=== PATIENT | female | born 1995 | race Caucasian/White ===

== ENCOUNTER → 2023-02-25 14:47 | Outpatient (CLI) | payer OTHER, SELFPAY ==
--- NOTE | ~2023-02-25 | MR_ITS ---
EXAMINATION: MR abdomen wo/w con DATE: 02/25/2023 16:31 INDICATION: Abnormal CT scan with left renal lesion TECHNIQUE: Magnetic resonance imaging (MRI) of the abdomen was performed without and with 17 mL Multi les intravenous contrast. Sequences included coronal T2-weighted SS-FSE, coronal and axial FS 2D-F IESTA, axial STIR FSE, axial T2-weighted SS-FSE, axial T2-weighted FS SS-FSE, axial diffusion-weighte d SE, axial dual-echo T1-weighted FSPGR, and axial and coronal T1-weighted LAVA. Postcontrast axial T 1-weighted LAVA images were obtained in a time course. Postcontrast coronal T1-weighted LAVA images w ere obtained. COMPARISON: CT dated 02/09/2023 FINDINGS: Heart size is normal. No pericardial or pleural effusion. Liver, gallbladder, spleen, pancreas, bilat eral adrenal glands and right kidney are normal. 12 mm complex cystic lesion at the lower pole of the left kidney which demonstrates T2 hyperintensity of less than simple fluid attenuation and mild incr eased T1 signal consistent with proteinaceous/hemorrhagic fluid. 2 mm thick enhancing wall along with a single thin internal septations with discernible enhancement. Visualized portions of bowels are un remarkable. 2.0 cm nonenhancing right adnexal cyst. No pathologically enlarged abdominal or upper pel jac lymphadenopathy. Bone marrow signal is normal throughout. IMPRESSION: 1. 12 mm likely benign Bosniak 2 complex cystic lesion at the lower pole of the left kidney. Reviewed, dictated and finalized at location B.
== END ==
PROVIDERS: PCP Nurse Practitioner Family; Visit Provider Nurse Practitioner Family
DX: R93.5 Abnormal findings on diagnostic imaging of other abdominal regions, including retroperitoneum (principal)
CPT/HCPCS: 74183; A9577

== ENCOUNTER 2023-03-19 13:55 | Emergency (ER) | payer OTHER, SELFPAY ==
--- NOTE | 2023-03-19 14:05 | ED.GENADULT ---
HPI - General Adult General Chief complaint: Back Pain/Injury Stated complaint: Fatigue,Lower Back Pain Time Seen by Provider: 03/19/23 14:05 Source: patient, RN notes reviewed and old records reviewed Mode of arrival: ambulatory Limitations: no limitations History of Present Illness HPI narrative: 28 year female presents to the [facility] with complaints of low back pain, fatigue, chills, headache and generalized weakness that started sudden onset at 11:30 a.m. this morning. Symptoms x3 hours. No treatment prior to arrival. Patient is concerned that she has COVID or her kidneys are having issues. States that she is declining a urine screening at this time. Patient denies any injury. States that she was just driving when she developed lower lumbar bilateral pain, body aches and sudden onset fatigue. Denies abdominal pain, chest pain, shortness of breath. Discussed with patient that we do not do blood work, cannot check for her kidneys. COVID test done. Patient declined further evaluation declined to ER Treatments prior to arrival: none Related Data Home Medications Medication Instructions Recorded Confirmed clindamycin 1 %-benzoyl peroxide 5 1 applic topical DAILY 02/17/23 03/19/23 % topical gel levothyroxine 50 mcg tablet 50 mcg PO DAILY 02/17/23 03/19/23 tretinoin 0.025 % topical cream 1 applic topical DAILY 02/17/23 03/19/23 Allergies Allergy/AdvReac Type Severity Reaction Status Date / Time No Known Allergies Allergy Verified 03/19/23 14:10 Review of Systems Review of Systems: All systems reviewed & are unremarkable except as noted in HPI and below Constitutional: Constitutional: Reports as per HPI, Reports body ache(s) and Reports fatigue Eyes: Eyes: Reports no additional eye complaints ENT: Reports system reviewed and no additional complaints, except as documented Cardiovascular: Cardiovascular: Reports no additional cardiovascular complaints, Denies chest pain and Denies dyspnea Respiratory: Respiratory: Reports no additional respiratory complaints, Denies chest congestion, Denies cough and Denies dyspnea Gastrointestinal: Gastrointestinal: Reports no additional gastrointestinal complaints, Denies abdominal pain, Denies nausea and Denies vomiting Musculoskeletal: Musculoskeletal: Reports as per HPI and Reports back pain (Lumbar) Integumentary/Breasts: Skin/Breast: Reports system reviewed and no additional complaints, except as docu Neurologic: Reports system reviewed and no additional complaints, except as documented Psychiatric: Psychiatric: Reports no additional psychiatric complaints Allergic/Immunologic: Allergic/Immunologic: Reports no additional allergic/immunologic complaints [facility] Past Medical History Medical History Hypothyroidism Family History Family History Grandparent Diabetes mellitus Heart disease Social History Social History Smoking status: Never smoker Alcohol intake: current Substance use: never Lack of Transportation: No Lack of Food: Never True Current Housing: I Have Housing Concerned About Future Housing: No Difficulty Paying Gas/Electric Bills: No Difficulty Paying for Meds: No Currently Unemployed: No Education: Associate Degree Difficulty w/ Childcare or Family Care: No Living arrangements: with family Occupation/Education: occupation Gender identity (if verbalized by the patient): Female Sexual Orientation (if Verbalized by the Patient): Straight or Heterosexual Comments At the time of my signature, I reviewed and agree with the nursing past medical, surgical, social, and family history. There is no relevant family history pertinent to the patient complaint. Exam Const: General: cooperative, healthy appearing, no acute distress, well developed, alert, uncomfor
[2023-03-19 14:06] VITALS: BP 133/72; PULSE 114; RESP 18; TEMP 38.3; O2SAT 100
--- NOTE | 2023-03-19 14:18 | PC.NURSE ---
PT DECLINES UA TESTING I DON'T HAVE A UTI, IT'S NOT FOAMY OR HAVE BLOOD IN IT.
== END 2023-03-19 14:45 | disposition home or self-care (01) ==
PROVIDERS: Emergency Provider Nurse Practitioner; PCP Nurse Practitioner Family
DX: B34.9 Viral infection, unspecified (principal); R53.83 Other fatigue; Z20.822 Contact with and (suspected) exposure to COVID-19; E03.9 Hypothyroidism, unspecified
CPT/HCPCS: 87426; 99213; C9803; G0463

== ENCOUNTER 2023-05-01 08:45 | Outpatient (CLI) | payer OTHER, SELFPAY ==
--- NOTE | 2023-05-20 14:12 | WPDHOMESLEEP ---
Sleep Study - Home Unattended Date of Study: 05/01/23 Ordering Provider: Julisa Mcelroy, COLLISION ESTIMATOR Interpreting Provider: Keturah Jack, DO Home Sleep Study Type: Watch PAT Height: 1.57 m Weight: 83.915 kg Body Mass Index: 33.8 Neck Circumference (inches): 14 [place]: 4 Reason for Sleep Study Unrefreshing sleep Sleep History The patient is a 28-year-old female with hypothyroidism that had a sleep study ordered by her primary care for evaluation of sleep apnea. The patient occasionally awakens from sleep she breath. He denies awakening at night with heartburn, belching or cough. She constantly snores loudly enough that others complain. She occasionally has trouble sleeping when she has a cold. She frequently wakes up gasping for air throughout the night. She rarely has breathing problems at night observed by herself or others. She occasionally sweats excessively at night. She constantly has heart palpitations or irregular heartbeats during the night. She rarely falls asleep during the day but never while driving. She denies cataplexy. She constantly has trouble at school or work due to sleepiness. She occasionally feels unable to move while waking up or falling asleep. She occasionally experiences vivid dreamlike scenes upon awakening or falling asleep. She denies feeling afraid of going to sleep. She rarely has nightmares. She frequently remembers her dreams. She frequently has thoughts racing through her mind. She rarely feels sad or depressed. She frequently has anxiety. She occasionally has muscular tension. She frequently notices parts of her body jerk. She denies kicking during the night. She denies having crawling and aching feelings in her legs. She rarely has leg pain during the night. She rarely grinds her teeth during sleep and rarely awakens with morning jaw pain. She occasionally wakes up feeling stiff in the morning. She denies waking up with sore or achy muscles. She occasionally wakes up with pain in the neck, spine or other joints. She goes to bed between 8:30-11 p.m. on weekdays and between 10:00 p.m. to 1:00 a.m. on the weekends. It takes her 10-30 minutes to fall asleep. She wakes up frequently throughout the night for unknown reasons and can take up to 30 minutes for her to fall back asleep. She wakes up between 5-10 a.m. on weekdays and between 8-10 a.m. on the weekends. She typically gets 5-10 hours of sleep per night. She will stay in bed for up to 5 minutes after waking up in the morning. She currently lives with her . She denies consuming any caffeinated beverages within 2 hours of bedtime. She denies engaging in physical exercise before bedtime. She will read and watch television before falling asleep. She will take naps in the afternoon or the evening but they are not refreshing. She consumes 2-4 caffeinated beverages per day. She denies tobacco, alcohol and recreational drug use. [facility] Past Medical History Medical History Hypothyroidism Family History Family History Grandparent Diabetes mellitus Heart disease Social History Social History Smoking status: Never smoker Alcohol intake: current Substance use: never Lack of Transportation: No Lack of Food: Never True Current Housing: I Have Housing Concerned About Future Housing: No Difficulty Paying Gas/Electric Bills: No Difficulty Paying for Meds: No Currently Unemployed: No Education: Associate Degree Difficulty w/ Childcare or Family Care: No Living arrangements: with family Occupation/Education: occupation Gender identity (if verbalized by the patient): Female Sexual Orientation (if Verbalized by the Patient): Straight or Heterosexual Medications Home Medications Medication Instructions Recorded
[2023-05-20 14:26] VITALS: BMI 33.8
== END 2023-05-04 10:43 | disposition home or self-care (01) ==
LOC: ANHCSM 08:50
PROVIDERS: PCP Nurse Practitioner Family; Visit Provider Nurse Practitioner Family
DX: G47.9 Sleep disorder, unspecified (principal)
CPT/HCPCS: 95800

== ENCOUNTER → 2023-08-31 14:32 | Outpatient (CLI) | payer OTHER, SELFPAY ==
--- NOTE | ~2023-08-31 | MR_ITS ---
EXAMINATION: MR abdomen wo/w con DATE: 08/31/2023 15:15 INDICATION: Renal mass TECHNIQUE: Magnetic resonance imaging (MRI) of the abdomen was performed without and with 17 mL Multi les intravenous contrast. Sequences included coronal T2-weighted SS-FSE, coronal and axial FS 2D-F IESTA, axial STIR FSE, axial T2-weighted SS-FSE, axial T2-weighted FS SS-FSE, axial diffusion-weighte d SE, axial dual-echo T1-weighted FSPGR, and axial and coronal T1-weighted LAVA. Postcontrast axial T 1-weighted LAVA images were obtained in a time course. Postcontrast coronal T1-weighted LAVA images w ere obtained. COMPARISON: 03/07/2023 FINDINGS: Heart size is normal. No pericardial effusion. Trace bilateral pleural effusions. Liver, gallbladder, spleen, pancreas, bilateral adrenal glands and right kidney are normal. No interval change in a 1.2 cm T2 hyperintense complex cystic lesion in the mid left kidney with posterior predominant T1 hyperin tense likely blood or proteinaceous fluid. There is suggestion of a subtle hairline internal septatio n. Visualized portion of the lungs are clear. Visualized portion of the bladder, uterus are normal. A few tiny T2 hyperintense cysts/follicles at the bilateral ovaries with 1.1 cm dominant follicle at t he left ovary. Small amount of likely physiologic free fluid in the pelvis. No pathologically enlarge d abdominal or pelvic lymphadenopathy. Bones are unremarkable with normal marrow signal throughout. IMPRESSION: 1. No interval change in a 1.2 cm Bosniak 2 cystic left renal lesion. Reviewed, dictated and finalized at location A. EM SUPPORT ANALYST
== END ==
PROVIDERS: PCP Urology; Visit Provider Urology
DX: N28.1 Cyst of kidney, acquired (principal)
CPT/HCPCS: 74183; A9577

== ENCOUNTER 2024-01-13 12:50 | Outpatient (CLI) | payer OTHER, SELFPAY ==
--- NOTE | ~2024-01-13 | US_ITS ---
EXAMINATION: US thyroid DATE: 01/13/2024 13:04 INDICATION: Hypothyroidism. TECHNIQUE: Multiple ultrasound images of the thyroid were obtained. COMPARISON: None. FINDINGS: The right thyroid lobe measures 5.1 x 1.9 x 1.7 cm. The left thyroid lobe measures 4.8 x 1.4 x 1.5 c m. The thyroid is diffusely heterogeneous and hypoechoic. No discrete nodule. Vascularity is normal. IMPRESSION: 1. Heterogeneous thyroid, likely chronic lymphocytic (Jorge's) thyroiditis. Reviewed, dictated and finalized at location A.
== END 2024-01-13 12:51 ==
LOC: MICIMG 12:50
PROVIDERS: PCP Internal Medicine Endocrinology, Diabetes & Metabolism; Visit Provider Internal Medicine Endocrinology, Diabetes & Metabolism
DX: E03.9 Hypothyroidism, unspecified (principal)
CPT/HCPCS: 76536

== ENCOUNTER 2024-09-21 12:52 | Outpatient (CLI) | payer OTHER, SELFPAY ==
--- NOTE | ~2024-09-21 | US_ITS ---
US retroperitoneal comp Ordering provider: Alvaro Roberto MD History: . acquired complex renal cyst . Comparison: None. Technique: Ultrasound bilateral kidneys. Findings: RIGHT KIDNEY: Measures 10.8x 4x 5.2 cm in length which is normal in size. No renal cysts. No renal ma ss or visualized echogenic stones. Otherwise, normal echotexture and contour. No hydronephrosis. Norm al renal cortical thickness. LEFT KIDNEY: Measures 10.8x 3.3x 4.4 cm in length which is normal in size. Complex echogenicity area is seen in the superior pole measuring 2.8 x 2.8 x 2.6 cm. No visualized echogenic stones. Otherwise, normal echotexture and contour. No hydronephrosis. Normal renal cortical thickness. BLADDER: Normal. Ureteral jets were not seen bilaterally. IMPRESSION: Mixed echogenicity area in the left kidney superior pole which is most likely a complex cyst. Follow- up advised. If Clinically warranted CT is advised. Reviewed, dictated and finalized at location A. AGE MAKER IMPRESSION: Mixed echogenicity area in the left kidney superior pole which is most likely a complex cyst. Follow-up advised. If Clinically warranted CT is advised.
== END 2024-09-21 12:53 | disposition home or self-care (01) ==
LOC: MICIMG 12:54
PROVIDERS: PCP Urology; Visit Provider Urology
DX: N28.1 Cyst of kidney, acquired (principal); R93.422 Abnormal radiologic findings on diagnostic imaging of left kidney
CPT/HCPCS: 76770

== ENCOUNTER 2025-02-17 15:33 | Outpatient (CLI) | payer OTHER, SELFPAY ==
--- OUTSIDE RECORDS SUMMARY | 2025-02-17 15:36 | XMS_ITS ---
Author Organization [facility] [place] ([address]) Address [address] [place] [address] Care Team Providers Care Testing And Regulating Chief Name Role Phone Julisa Mcelroy Primary Care Provider UnavailRosa Benitez Unavailable [phone] ZZ[facility]Migration, Provider Unavailable [facility] REASON FOR VISIT Multum To Medispan Conversion Encounter Medications Medication SIG (Take, Route, Frequency, Duration) Notes Start Date End Date Status Levothyroxine Sodium 25 MCG 1 tab(s) ora lly once a day; Duration: 30 day(s) Active Encounters Encounter Location Date Provider Diagnosis [address] [address] 01/02/2024 Provider ZZ-Migration Plan Of Treatment No Information Progress Notes * Naya MARTINEZ MDOB: [birth year] (29 yo F)Acc No.[id number]:01/02/2024 Patient: Donal Naya STEPHENS Provider: Petra Grimes :1995 A ge:28 Y S ex:Female Date:01/02/2024 Address:[address] [id number] Pcp:Julisa Mcelroy Subjective: * Chief Complaints: * 1 . Multum To Medispan Conversion Encounter. * Medical History: * Medications: T aking Levothyroxine Sodium 25 MCG Tablet 1 tab(s) orally once a day Objective: * Vitals: Assessment: Plan: * Treatment: * Billing Information: * Visit Code: * Procedure Codes: * Electronic signature of Prov bhumir ZZ-Migration on 02/17/2025 at 03:36 PM CDT Sign off status: Pending * Provider: Petra youssef Migration Date: 01/02/2024 Generated for Carolyn domínguez/Summer/Norma on: 02/17/2025 03:36 PM CDT
--- OUTSIDE RECORDS SUMMARY | 2025-02-17 15:36 | XMS_ITS | Patient Health Record ---
Author Organization [facility] [place] ([address]) Address [address] [facility] [address] [place] [address] Care Team Providers Care Agricultural Systems Specialist Name Role Phone BertoestevanJulisa Primary Care Provider Rosa Rios Unavailable [phone] Allergies No Known Allergies Reason For Referral No Information Medications Medication SIG (Take, Route, Frequency, Duration) Notes Start Date End Date Status LEVOTHYROXINE 25 mcg (0.025 mg) 1 tab(s) orally once a day; Duration: 30 day(s) Active Levothyroxine Sodium 25 MCG 1 tab(s) ora lly once a day; Duration: 30 day(s) Active Immunizations Vaccine Route Administration Date Status Comme nts DTaP < 7 y/o Unknown 11/14/1998 Administered Portal Inf ormation Hepatitis B (11-19) Unknown 1994 Administered Por perfecto Information Hepatitis B (20 and more) Unknown 12/22/2015 Administer ed Portal Information NOC PedvaxHIB Unknown 06/04/1995 Administered Portal In formation Hepatitis A Unknown 04/08/2007 Administered Portal Info rmation NOC Tdap Unknown 03/28/2015 Administered Portal Infor mation Social History Tobacco Use: Social History Observation Description Date Details (start date - stop date) Never Smoker NA - NA Smoking Smart Form: Question Answer Notes Are you a: never smoker Problems Problem Type SNOMED Code ICD Code Onset Dates Problem Status W/U Status Risk Notes Problem Allergic rhinitis caused by pollen (disorder) (00973450) Allergic rhinitis due to pollen (J30.1) Active confirmed Plan Of Treatment No Information Insurance Providers Payer Name Payer Address Payer Phone Subscriber Number Group Number Insured Name Patient Relationship to Insured Coverage Start Date Coverage End Date [facility] [address] [place] [address] [id number] Naya [place] Self - patient is the insured Medical (General) History Medical History History ICD Code Hypothyroidism Chronic rhinitis J31.0 Surgical History Surgery Date(Month/Year)
--- OUTSIDE RECORDS SUMMARY | 2025-02-17 15:36 | XMS_ITS | Clinical Summary ---
Author Organization [facility] Address [facility] [place] [address] Care Team Providers Care Neon Tube Pumper Name Role Phone Julisa Mcelroy ISAÍAS Primary Care Provider [phone] Allergies No known active allergies Medications methylPREDNISol one, IVETTE, 4 MG tablet 6 TABLETS ON DAY ONE, 5 TABLETS DAY TWO, 4 TABLETS DAY THREE, 3 TABLETS DAY FOUR, 2 TABLETS DAY FIVE, AND 1 TABLET DAY SIX 1 each 06/18/2018 Active Family History Medical History Relation Comments Diabetes Maternal Grandmother Relation Status Comments Father Alive Maternal Grandmother Mother Alive Social History Tobacco Use Types Packs/Day Years Used Date Smoking Tobacco: Never Smokeless Tobacco: Never Tobacco Cessation:Counseling Given: Not Answered Alcohol Use Standard Drinks/Week Comments Yes 0 (1 standard drink = 0.6 oz pur e alcohol) occ. AUDIT-C Answer Date Recorded Frequency of Alcohol Consumption Never 06/18/2018 Average Number of Drinks Not on file 018 Frequency of Binge Drinking Not on file 05/22 Comments No Sex and Gender Information Value Date Recorded Sex Assigned at Not on file Legal Sex Female 4:43 PM CDT Gender Identity Not on file Sexual Orientation Not on file Last Filed Vital Signs Vital Sign Reading Time Taken Comments Blood Pressure 140/88 02/09/2023 1:42 PM CDT Pulse 80 02/09/2023 1:42 PM CDT Temperature 36.9 C (98.4 F) 02/09/2023 10:35 AM CDT Respiratory Rate 16 02/09/2023 1:42 PM CDT Oxygen Saturation 100% 02/09/2023 1:42 PM CDT Inhaled Oxygen Concentration - - Weight 83.6 kg (184 lb 4.9 oz) 02/09/2023 10:35 AM CDT Height 157.5 cm (5' 2) 02/09/2023 10:35 AM CDT Body Mass Index 33.71 02/09/2023 10:35 AM CDT Plan of Treatment Health Maintenance Due Date Last Done Comments Cervical Cancer Screening Pap Smear (Age 30 to 64) Every 3 Years 1994 Annual Physical 1997 Hepatitis C 02/28/2012 DTaP, Tdap and Td Vaccines (7 - Td or Tdap) 01/22/2021 01/22/2011, 06/19/2005, 11/14/1998, Additional history exists Cervical Cancer Screening Pap with HPV Testing (Age 30 to 64) Every 5 Years 02/28/2024 Cervical Cancer Screening with HPV 02/28/2024 COVID-19 Vaccine () 03/20/2024 10/27/2020 Hepatitis B Vaccines Completed 1995, 1995, 1995 HPV Vaccines Completed 11/26/2007, 05/21, 04/08/2007 Meningococcal B Vaccine Aged Out No l onger eligible based on patient's age to complete this topic Meningococcal Vaccine Aged Out No gustavo junie eligible based on patient's age to complete this topic Pneumococcal Vaccine: Pediatrics (0 to 5 Years) and At-Risk Patients (6 to 49 Years) Aged Out No longer eligible based on patient's age to complete this topic RSV Immunizations Under 20 Months Aged Out No longer eligible based on patient's age to complete this topic Insurance Care Teams Neon Tube Pumper Relationship Specialty Start Date End Date Julisa Mcelroy NP [address] [id number] PCP - General 02/09/23
--- OUTSIDE RECORDS SUMMARY | 2025-02-17 15:37 | XMS_ITS | Continuity of Care Document ---
Author Name [facility] Organization [facility] Care Team Providers Care Digital Solution Architect Name Role Phone [facility] Unavailable Unavailable Problems Combined list of problems from Department of Defense and Veterans Affairs facilities. It does not include entries that were removed or entered in error. 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 ASSESSMENT, POST-DEPLOYMENT, DOCUMENTED ON [id number] Inactive [address] [facility] Encounter for screening for COVID-[address] [facility] Encounter for surveillance of contraceptive pills Active [address] [facility] Allergic rhinitis due to tree pollen Active [facility] Hypothyroidism Active Condition [facility] Anxiety (SCT 88162165) Active Condition [facility] Hypothyroidism (SCT 50047926) Active Condition [facility] Neck Pain (SCT 21370087) Active Condition [facility] Allergic contact dermatitis due to other agents Active Condition 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, bilateral Active Diagnosis [facility] Diagnosis: ICD-10-CM L30.9 Dermatitis, unspecified Active Diagnosis [facility] Diagnosis: ICD-10-CM E66.9 Obesity, unspecified Active Diagnosis [facility] Diagnosis: ICD-10-CM M54.2 Cervicalgia Active Diagnosis [facility] Diagnosis: ICD-10-CM N39.9 Disorder of urinary system, unspecified Active Diagnosis [facility] Diagnosis: ICD-10-CM Z71.89 Other specified counseling Active Diagnosis [facility] Diagnosis: ICD-10-CM E03.9 Hypothyroidism, unspecified Active Diagnosis [facility] Medications Combined list of outpatient medications from Department of Defense and Veterans Affairs facilities.Medications provided include 1) outpatient medications from the last 15 months, and 2) patient-reported medications. Medication Details Route Status Patient Instructions Prescription Expires Prescription Number Last Dispense Date Ordering Provider Order Date Order Qty Source buPROPion 300 mg/24 hours (XL) oral tablet, extended release 90 EA, 0 Refill(s ), TAKE 1 TABLET BY MOUTH EVERY DAY IN THE MORNING FOR 90 DAYS, 0 total refill(s ), Soft Stop Ordered 2023 8320R-9 32D [facility] 4AF BUPROPION XL (bupropion HCl), 300 MG, TAB ER 24H, ORAL, Epic!, 500 ea. BOTTLE Active [id number] 4 2023 90 Pharmac y Data Transac tion Service Facilit y celecoxib 200 mg oral capsule TAKE TWO CAPSULES BY MOUTH WITH ONSET OF CRAMPS, THEN TAKE ONE CAPSULE BY MOUTH TWICE A DAY FOR DURATION OF MENSES, # 90 EA, 3 total refill(s ), Acute Complet ed 03/19/2023 2 2022 90.0 [facility] Pharmac y clindamycin 1% topical gel 1 appl(s), Topical, BID, # 30 g, 0 total refill(s ), Maintena nce Topica l (on the skin) Ordered 2023 30.0 8320R-9 32D [facility] 4AF dapsone 7.5% gel pump [60g] See Instruct ions, # 60 g, 5 total refill(s ), Soft Stop Ordered 5 2024 60.0 Ambulat or[facility] Pharmac y levothyroxi ne (Synthroid) 88 mcg tablet See Instruct ions, # 90 EA, 2 total refill(s ), Soft Stop Ordered 5 2024 90.0 Ambulat ory Pharmac y levothyroxi ne 25 mcg oral tablet 1 tab(s), Oral, Daily, for thyroid, # 90 tab(s), 0 total refill(s ), Maintena nce Oral (given by mouth) Complet ed 03/31/20242023 90.0 Ambul[facility] Pharmac y levothyroxi ne 75 mcg oral tablet 0 Refill(s ), 0 total refill(s ), Soft Stop Complet ed 03/31/20242023 8320R-9 32D [facility] 4AF levothyroxi ne 88 mcg oral tablet 90 EA, 0 Refill(s ), TAKE 1 TABLET BY MOUTH EVERY DAY, 0 total refill(s ), Soft Stop Ordered 2023 8320R-9 32D [facility] 4AF LEVOTHYROXI NE SODIUM (LEVOTHYROX INE SODIUM), 75MCG, TABLET, ORAL, MYLAN, 1000 ea. BOTTLE Active [id number] 4 2023 90 Pharmac y Data Transac tion Service Facilit y LEVOTHYROXI NE SODIUM (LEVOTHYROX INE SODIUM), 88MCG, TABLET, ORAL, MYLAN, 1000 ea. BOTTLE Active [id number] 4 2023 30 Pharmac y Data Transac tion Service Facilit y medroxyPROG ESTERone 10 mg oral tablet TAKE ONE TABLET BY MOUTH EVERY DAY FOR 13 DAYS IF NO MENSES FOR 3 MONTH, # 13 EA, 3 total refill(s ), Acute Complet ed 03/19/2023 2 2022 13.0 Ambul[facility] Pharmac y METHYLPREDN ISOLONE 4MG TAB DOSEPAK,21 TAKE TABLETS BY MOUTH DIRECTED ORAL ACTIVE ROSA MARIA PELAEZ 2023 [facility] tretinoin 0.01% topical gel 1 appl(s), Topical, Daily, # 20 g, 0 total refill(s ), Maintena nce Topica l (on the skin) Ordered 2023 20.0 8320R-9 32D [facility] SQ 4AF TRIAMCINOLO NE ACETONIDE 0.1% CREAM,TOP APPLY LIGHTLY TO AFFECTED AREA(S) THREE TIMES A DAY NEEDED TOPICA L ACTIVE ROSA MARIA PELAEZ 2023 [facility] Vitamin D3 50 mcg (2000 intl units) oral capsule 1 cap(s), Oral, Daily, 0 total refill(s ), Maintena nce Oral (given by mouth) Ordered 2023 8320R-9 32D [facility] SQ 4AF Allergies, Adverse Reactions, Alerts Combined list of allergies from Department of Defense and Veterans Affairs facilities. It does not include entries that were removed or entered in error. Substance Category Reaction Severity Reaction type Status Date Reported Comments Source No Known Allergies Drug allergy (disorder) active 8 [place] [place] [address] Tree Pollen Allergy to substance Rhinitis Mild Active Unknown Organization Immunizations Combined list of available immunizations from the Department of Defense and Veterans Affairs facilities. Immunization Series Date Given Administered By Site Reaction Lot Number CVX Code Drug Heel Coverer Status Comments Source INFLUENZA, SPLIT VIRUS, TRIVALENT, PF 1 2023 140 complet ed HISTORICA L INFORMATI ON - FROM OTHER [facility] INFLUENZA, INJECTABLE, QUADRIVALENT, PRESERVATIVE FREE 1 2022 150 complet ed HISTORICA L INFORMATI ON - FROM OTHER [facility] Influenza, injectable, quadrivalent, preservative free 0 2021 [id number] SmithKline (SKB) complet ed Influenza , injectabl e, quadrival ent, preservat charles free DoD rubella virus vaccine 0 2021 06 () Not Given rubella virus vaccine [facility] varicella virus vaccine 0 2021 21 () Not Given varicella virus vaccine [facility] hepatitis A vaccine, adult dosage 0 2021 52 () Not Given hepatitis A vaccine, adult dosage [facility] SARS-COV-2 (COVID-19) vaccine, mRNA, spike protein, LNP, preservative free, 100 mcg or 50 mcg dose 2 2021 [id number] 207 [employer] (MOD) complet ed SARS-COV- 2 (COVID-19 ) vaccine, mRNA, spike protein, LNP, preservat charles free, 100 mcg or 50 mcg dose DoD anthrax vaccine 3 2020 [id number] 24 [facility] ([facility]) complet ed anthrax vaccine DoD yellow fever vaccine 1 2020 [id number] 37 Sanofi Pasteur (PMC) complet ed yellow fever vaccine DoD meningococcal polysaccharid e (groups A, C, Y and W-135) diphtheria toxoid conjugate vaccine (MCV4P) 2 2020 [id number] 114 Sanofi Pasteur (PMC) complet ed meningoco ccal polysacch aride (groups A, C, Y and W-135) diphtheri a toxoid conjugate vaccine (MCV4P) DoD influenza, injectable, quadrivalent, preservative free 2020 DERRICK, () Not Given influenza , injectabl e, quadrival ent, preservat charles free DoD Influenza, seasonal, injectable 1 2020 [id number] 141 Transcribed (TRS) complet ed Influenza , seasonal, injectabl e DoD Influenza, injectable, quadrivalent, preservative free 0 2020 150 Seqirus (SEQ) comple t ed Influenza , injectabl e, quadrival ent, preservat charles free DoD anthrax vaccine 2 2020 [id number] 24 [facility] ([facility]) complet ed anthrax vaccine DoD anthrax vaccine 1 2020 [id number] 24 [facility] ([facility]) complet ed anthrax vaccine DoD typhoid Vi capsular polysaccharid e vaccine 1 2020 [id number] 101 Sanofi Pasteur (PMC) complet ed typhoid Vi capsular polysacch aride vaccine DoD SARS-COV-2 (COVID-19) vaccine, vector non-replicati ng, recombinant spike protein-Ad26, preservative free, 0.5 mL 1 2020 212 Kristen (BEST) comple t ed SARS-COV- 2 (COVID-19 ) vaccine, vector non-repli cating, recombina nt spike protein-A d26, preservat charles free, 0.5 mL DoD Influenza, injectable, quadrivalent, preservative free 1 2019 [id number] 868 150 Seqirus (SEQ) complet ed Influenza , injectabl e, quadrival ent, preservat charles free DoD Influenza, injectable, quadrivalent, preservative free 0 2018 [id number] 040 150 Seqirus (SEQ) complet ed Influenza , injectabl e, quadrival ent, preservat charles free DoD Influenza, injectable, quadrivalent, preservative free 1 2017 [id number] 150 Seqirus (SEQ) comple t ed Influenza , injectabl e, quadrival ent, preservat charles free DoD hepatitis B vaccine, unspecified formulation 0 2017 45 () Not Given hepatitis B vaccine, unspecifi ed formulati on DoD measles virus vaccine 0 2017 05 () Not Given measles virus vaccine DoD rubella virus vaccine 0 2017 06 () Not Given rubella virus vaccine DoD mumps virus vaccine 0 2017 07 () Not Given mumps virus vaccine DoD influenza, injectable, quadrivalent- pf 2016 [id number] 150 Seqirus complet ed influenza , injectabl e, quadrival ent-pf 05/23/17 Given 0128C-9 2ND [facility] Influenza, injectable, quadrivalent, preservative free 1 2016 [id number] 150 Seqirus (SEQ) comple t ed Influenza , injectabl e, quadrival ent, preservat charles free DoD influenza, seasonal, injectable-pf 2015 [id number] 140 Unknown complet ed influenza , seasonal, injectabl e-pf 05/25/16 Given 0128C-9 2ND MED [facility] Influenza, seasonal, injectable, preservative free 1 2015 [id number] 140 Unknown (UNK) comple t ed Influenza , seasonal, injectabl e, preservat charles free DoD hepatitis B adult vaccine 2015 UNK 43 Unknown complet ed hepatitis B adult vaccine 12/22/15 Given 0128C-9 2ND [facility] hepatitis B vaccine, adult dosage 3 2015 UNK 43 Unknown (UNK) comple t ed hepatitis B vaccine, adult dosage DoD hepatitis B adult vaccine 2014 [id number] 43 GlaxoSmithKli ne complet ed hepatitis B adult vaccine 05/18/15 Given 0128C-9 2ND MED [facility] hepatitis B vaccine, adult dosage 2 2014 [id number] 43 pro[place] (SKB) complet ed hepatitis B vaccine, adult dosage DoD influenza, seasonal, injectable-pf 2014 [id number] 140 CSL Behring complet ed influenza , seasonal, injectabl e-pf 05/01/15 Given 0128C-9 2ND MED GRP-JO[facility]CHILD Influenza, seasonal, injectable, preservative free 1 2014 [id number] 140 CSL AutomileherapAlavita Pharm[employer], Inc[employer] Inc. (CSL) complet ed Influenza , seasonal, injectabl e, preservat charles free DoD adenovirus vaccine, live 2014 [id number] 143 Teva Pharmaceutica ls complet ed adenoviru s vaccine, live 03/28/15 Given 0128C-9 2ND [facility] tetanus, diphtheria, acellular pertu is 2014 [id number] 115 sanofi pasteur complet ed tetanus, diphtheri a, acellular pertussis 03/28/15 Given 0128C-9 2ND MED [facility] meningococcal A,C,Y,W-135 (MCV4P) 2014 [id number] 114 sanofi pasteur complet ed meningoco ccal A,C,Y,W-1 35 (MCV4P) 03/28/15 Given 0128C-9 2ND [facility] hepatitis B adult vaccine 2014 [id number] 43 GlaxoSmithKli ne complet ed hepatitis B adult vaccine 03/28/15 Given 0128C-9 2ND [facility] poliovirus vaccine, inactivated 2014 [id number] 10 sanofi pasteur complet ed polioviru s vaccine, inactivat ed 03/28/15 Given 0128C-9 2ND [facility] measles, mumps and rubella virus vaccine 1 2014 UNK 03 Unknown (UNK) Not Given measles, mumps and rubella virus vaccine DoD poliovirus vaccine, inactivated 1 2014 [id number] 10 Sanofi Pasteur ([facility]) complet ed polioviru s vaccine, inactivat ed DoD varicella virus vaccine 1 2014 UNK 21 Unknown (UNK) Not Given varicella virus vaccine DoD hepatitis B vaccine, adult dosage 1 2014 [id number] 43 SmithKline (SKB) complet ed hepatitis B vaccine, adult dosage DoD hepatitis A vaccine, adult dosage 1 2014 UNK 52 Unknown (UNK) Not Given hepatitis A vaccine, adult dosage DoD meningococcal polysaccharid e (groups A, C, Y and W-135) diphtheria toxoid conjugate vaccine (MCV4P) 1 2014 [id number] 114 Sanofi Pasteur ([facility]) complet ed meningoco ccal polysacch aride (groups A, C, Y and W-135) diphtheri a toxoid conjugate vaccine (MCV4P) DoD tetanus toxoid, reduced diphtheria toxoid, and acellular pertu is vaccine, adsorbed 1 2014 [id number] 115 Sanofi Pasteur ([facility]) complet ed tetanus toxoid, reduced diphtheri a toxoid, and acellular pertussis vaccine, adsorbed DoD Adenovirus, type 4 and type 7, live, oral 1 2014 [id number] 143 [facility] ([facility]) complet ed Adenoviru s, type 4 and type 7, live, oral DoD tetanus, diphtheria, acellular pertu is 2010 TRANSCR IBED 115 complet ed tetanus, diphtheri a, acellular pertussis 01/22/11 Given 0128C-9 2ND [facility] tetanus toxoid, reduced diphtheria toxoid, and acellular pertu is vaccine, adsorbed 1 2010 115 Transcribed (TRS) complet ed tetanus toxoid, reduced diphtheri a toxoid, and acellular pertussis vaccine, adsorbed DoD Human Papillomaviru s,quadrivalen t(HPV4) 2007 TRANSCR IBED 62 complet ed Human Papilloma virus,beth drivalent (HPV4) 11/26/07 Given 0128C-9 2ND MED GR[facility] human papilloma virus vaccine, quadrivalent 3 2007 62 Transcribed (TRS) complet ed human papilloma virus vaccine, quadrival ent DoD Human Papillomaviru s,quadrivalen t(HPV4) 11/20/ 2007 TRANSCR IBED 62 complet ed Human Papilloma virus,beth drivalent (HPV4) 06/08/07 Given 0128C-9 2ND [facility] human papilloma virus vaccine, quadrivalent 2 2006 62 Transcribed (TRS) complet ed human papilloma virus vaccine, quadrival ent DoD Human Papillomaviru s,quadrivalen t(HPV4) 2006 TRANSCR IBED 62 complet ed Human Papilloma virus,beth drivalent (HPV4) 04/08/07 Given 0128C-9 2ND [facility] Hep A, pediatric, unspecified formul 2006 TRANSCR IBED 31 complet ed Hep A, pediatric , unspecifi ed formul 04/08/07 Given 0128C-9 2ND [facility] hepatitis A vaccine, pediatric dosage, unspecified formulation 2 2006 31 Transcribed (TRS) complet ed hepatitis A vaccine, pediatric dosage, unspecifi ed formulati on DoD human papilloma virus vaccine, quadrivalent 1 2006 62 Transcribed (TRS) complet ed human papilloma virus vaccine, quadrival ent DoD Td (adult) 2004 TRANSCR IBED 138 complet ed Td (adult) 06/19/05 Given 0128C-9 2ND [facility] tetanus and diphtheria toxoids, not adsorbed, for adult use 1 2004 138 Transcribed (TRS) complet ed tetanus and diphtheri a toxoids, not adsorbed, for adult use DoD DTaP 1998 TRANSCR IBED 20 complet ed DTaP 11/14/98 Given 0128C-9 2ND [facility] poliovirus vaccine, inactivated 1998 TRANSCR IBED 10 complet ed polioviru s vaccine, inactivat ed 11/14/98 Given 0128C-9 2ND [facility] measles/mumps /rubella virus vaccine 1998 TRANSCR IBED 03 complet ed measles/m umps/rube lla virus vaccine 11/14/98 Given 0128C-9 2ND [facility] measles, mumps and rubella virus vaccine 3 1998 03 Transcribed (TRS) complet ed measles, mumps and rubella virus vaccine DoD poliovirus vaccine, inactivated 5 1998 10 Transcribed (TRS) complet ed polioviru s vaccine, inactivat ed DoD diphtheria, tetanus toxoids and acellular pertu is vaccine 5 1998 20 Transcribed (TRS) complet ed diphtheri a, tetanus toxoids and acellular pertussis vaccine DoD haemophilus b conjugate (PRP-T) vaccine 1994 TRANSCR IBED 48 complet ed haemophil us b conjugate (PRP-T) vaccine 06/04/95 Given 0128C-9 2ND [facility] DTaP 1994 TRANSCR IBED 20 complet ed DTaP 06/04/95 Given 0128C-9 2ND [facility] diphtheria, tetanus toxoids and acellular pertu is vaccine 4 1994 20 Transcribed (TRS) complet ed diphtheri a, tetanus toxoids and acellular pertussis vaccine DoD Haemophilus influenzae type b vaccine, PRP-T conjugate 4 1994 48 Transcribed (TRS) complet ed Haemophil us influenza e type b vaccine, PRP-T conjugate DoD measles/mumps /rubella virus vaccine 1994 TRANSCR IBED 03 complet ed measles/m umps/rube lla virus vaccine 03/03/95 Given 0128C-9 2ND MED GR[facility] measles, mumps and rubella virus vaccine 2 1994 03 Transcribed (TRS) complet ed measles, mumps and rubella virus vaccine DoD haemophilus b conjugate (PRP-T) vaccine 1994 TRANSCR IBED 48 complet ed haemophil us b conjugate (PRP-T) vaccine 94 Given 0128C-9 2ND [facility] DTaP 1994 TRANSCR IBED 20 complet ed DTaP 94 Given 0128C-9 2ND [facility] poliovirus vaccine, inactivated 1994 TRANSCR IBED 10 complet ed polioviru s vaccine, inactivat ed 94 Given 0128C-9 2ND [facility] hepatitis B pediatric/ado lescent 1994 TRANSCR IBED 08 complet ed hepatitis B pediatric /adolesce nt 94 Given 0128C-9 2ND [facility] hepatitis B vaccine, pediatric or pediatric/ado lescent dosage 7 1994 08 Transcribed (TRS) complet ed hepatitis B vaccine, pediatric or pediatric /adolesce nt dosage DoD poliovirus vaccine, inactivated 4 1994 10 Transcribed (TRS) complet ed polioviru s vaccine, inactivat ed DoD diphtheria, tetanus toxoids and acellular pertu is vaccine 3 1994 20 Transcribed (TRS) complet ed diphtheri a, tetanus toxoids and acellular pertussis vaccine DoD Haemophilus influenzae type b vaccine, PRP-T conjugate 3 1994 48 Transcribed (TRS) complet ed Haemophil us influenza e type b vaccine, PRP-T conjugate DoD haemophilus b conjugate (PRP-T) vaccine 1993 TRANSCR IBED 48 complet ed haemophil us b conjugate (PRP-T) vaccine 94 Given 0128C-9 2ND [facility] DTaP 1993 TRANSCR IBED 20 complet ed DTaP 94 Given 0128C-9 2ND [facility] diphtheria, tetanus toxoids and acellular pertu is vaccine 2 1993 20 Transcribed (TRS) complet ed diphtheri a, tetanus toxoids and acellular pertussis vaccine DoD Haemophilus influenzae type b vaccine, PRP-T conjugate 2 1993 48 Transcribed (TRS) complet ed Haemophil us influenza e type b vaccine, PRP-T conjugate DoD poliovirus vaccine, inactivated 1993 TRANSCR IBED 10 complet ed polioviru s vaccine, inactivat ed 94 Given 0128C-9 2ND [facility] poliovirus vaccine, inactivated 3 1993 10 Transcribed (TRS) complet ed polioviru s vaccine, inactivat ed DoD haemophilus b conjugate (PRP-T) vaccine 1993 TRANSCR IBED 48 complet ed haemophil us b conjugate (PRP-T) vaccine 94 Given 0128C-9 2ND [facility] DTaP 1993 TRANSCR IBED 20 complet ed DTaP 94 Given 0128C-9 2ND [facility] poliovirus vaccine, inactivated 1993 TRANSCR IBED 10 complet ed polioviru s vaccine, inactivat ed 94 Given 0128C-9 2ND [facility] hepatitis B pediatric/ado lescent 1993 TRANSCR IBED 08 complet ed hepatitis B pediatric /adolesce nt 94 Given 0128C-9 2ND [facility] hepatitis B vaccine, pediatric or pediatric/ado lescent dosage 6 1993 08 Transcribed (TRS) complet ed hepatitis B vaccine, pediatric or pediatric /adolesce nt dosage DoD poliovirus vaccine, inactivated 2 1993 10 Transcribed (TRS) complet ed polioviru s vaccine, inactivat ed DoD diphtheria, tetanus toxoids and acellular pertu is vaccine 1 1993 20 Transcribed (TRS) complet ed diphtheri a, tetanus toxoids and acellular pertussis vaccine DoD Haemophilus influenzae type b vaccine, PRP-T conjugate 1 1993 48 Transcribed (TRS) complet ed Haemophil us influenza e type b vaccine, PRP-T conjugate DoD hepatitis B pediatric/ado lescent 1993 TRANSCR IBED 08 complet ed hepatitis B pediatric /adolesce nt 94 Given 0128C-9 2ND [facility] hepatitis B vaccine, pediatric or pediatric/ado lescent dosage 5 1993 08 Transcribed (TRS) complet ed hepatitis B vaccine, pediatric or pediatric /adolesce nt dosage DoD Results Combined list of recent chemistry, hematology and other laboratory results from Department of Defense and Veterans Affairs, ranging from 15 months to all on record, depending upon the facility. Order Name Results Value Reference Range Date Interpretation Specimen Comments Source HEP C Ab HCV Ab (STL) HEPATITIS C VIRUS AB [PRESENCE] IN SERUM Nonreact charles 09/22 Specimen Type: SERUM No comment entered. Ordering Provider: KAREY BHARDWAJ Report Released Date/Time: Sep 23, 2023 01:30 PM Reporting Lab: [facility] [address] [place] [address] Performing Lab: [facility] [address] [place] [address] [facility] Infectiou s Disease HIV-1/O/2 Non-Reac tive 1 (06/20/23 2:47 PM) 06/20 N Interpretiv e Data: INTERPRETAT ION: This method is a screening procedure for the detection of HIV p24 Antigen and Antibodies to HIV-1, including Group O, and/or HIV-2. NON-REACTIV E: HIV-1 antigen and HIV-1 / HIV-2 antibodies were not detected. No laboratory evidence of HIV infection. A negative test result does not exclude the possibility of exposure to or infection with HIV. HIV antibodies and/or p24 antigen may be undetectabl e in some stages of the infection and in some clinical conditions. If acute HIV infection is suspected, consider submitting another specimen to a reference laboratory for HIV-1 RNA. SCREEN REACTIVE - CONFIRMATIO N TO FOLLOW: Possible presence of HIV-1antibo dies, HIV-2 antibodies and/or HIV-1 p24 antigen. Specimen will reflex to the confirmatio n testing that fulfills the Center for Disease Control and Prevention' s HIV diagnostic algorithm. Refer to [facility] Lab Guide for additional information : [email or web address] x Testing performed by [employer] [facility]. 5600A-U [facility] Miscellan eous Sendouts Repository Sample Received (06/20/23 2:47 PM) 06/20 N [facility] Chemistry TSH 2.85 uIU/mL 0.47 - 4.68 12/23 N 0113A-A F-C-[facility]n d [facility] Chemistry T4 Free 1.52 ng/dL 0.78 - 2.19 12/23 N 0113A-A F-C-[facility]n d [facility] Vital Signs Combined list of inpatient and outpatient Vital Signs from Department of Defense and Veterans Affairs, ranging from 12 months to all on record, depending upon the facility. Vital Sign Value Date Comments Source Mean Arterial Pressure, Calc 91 mm[Hg] 04/03/2018 01:25:00 [facility] S[facility] 4AF Peripheral Pulse Rate 91 bpm 04/03/2018 01:25:00 8320R932D [facility]IC[facility] SQ 4AF Respiratory Rate 14 br/min 04/03/2018 01:25:00 8320R-932D [facility] SQ 4AF Systolic Blood Pressure 118 mm[Hg] 04/03/20 18 01:25:00 8320R-932D [facility] SQ 4AF Diastolic Blood Pressure 78 mm[Hg] 018 01:25:00 8320R-932D [facility] SQ 4AF Respiratory Rate 14 br/min 04/01/2018 18:34:00 No Facility Access Peripheral Pulse Rate 92 bpm 04/01/2018 18:34:00 No Facility Access Mean Arterial Pressure, Calc 91 mm[Hg] 04/01/2018 18:34:00 No Facility Access Systolic Blood Pressure 118 mm[Hg] 04/01/20 18 18:34:00 No Facility Access Diastolic Blood Pressure 78 mm[Hg] 018 18:34:00 No Facility Access Encounters Combined list of: 1) Encounters from [facility] of [facility] facilities going backup to the last 18 months, not all [facility] inpatient encounters are included; 2) Encounters from the Department of [employer] facilities going backup to 280 months. Location Location Details Encounter Type Encounter Number Reason For Visit Attending Provider ADM Date DC Date Status Disposition Source [facility] [id number] Notes Entered by: RONAL MELISSA 21 Mar 2015 1340 ------- ------- ------- ------- -- BLOOD MARY GARCIA 03/21 Released w/o Limitations [facility] STEPHEN Elkins(Ramo g Conservat ion) OUTPATIENT [id number] Notes Entered by: Ranjeet NORTON 23 Mar 2015 1103 ------- ------- ------- ------- -- [facility] ABET NEGIN NORTON 03/23 Released w/o Limitations STEPHEN Correa(Hear ing Conserv ation) STEPHEN Elkins(OST Optometry ) OUTPATIENT [id number] Notes Entered by: ME EVELYN MA 23 Mar 2015 1140 ------- ------- ------- ------- -- OST IET ZELALEM BECKFORD 03/23 Released w/o Limitations [facility] [employer] [place] [facility] [place] OUTPATIENT [id number] Notes Entered by: EVANGELINA MONTOYA 28 Mar 2015 0800 ------- ------- ------- ------- -- SAÚL ZAVALA 03/28 Released w/o Limitations [facility] [employer] [place] [facility] [facility] [employer] [place]AMH S02B Leak[place] OUTPATIENT [id number] Notes Entered by: IGOR CASE 11 May 2015 0655 ------- ------- ------- ------- -- (N P)-ADT C SORE THROAT, COUGH,S INUSES MATT CODY 05/11 Released w/o Limitations [facility] [employer] S02B [place] [facility] [employer] [place] S02B Le[place] OUTPATIENT [id number] Notes Entered by: LEWIS JARVIS 15 May 2015 1038 ------- ------- ------- ------- -- C 08/07 [facility] ALLERGI ES MATT CODY 05/15 Released w/o Limitations [facility] [employer] [place] S02B Le[place] [facility] [employer] [place] OUTPATIENT [id number] Notes Entered by: JOHN DEL RIO 18 May 2015 1256 ------- ------- ------- ------- -- Cont/SAÚL Cedeno 05/18 Released w/o Limitations [facility] [employer] [place] [facility]) [place] [place] [address](AMH S01B Juan J) OUTPATIENT [id number] Notes Entered by: Jennifer KELLOGG 05 Jun 2015 0641 ------- ------- ------- ------- -- ftscall -overfl ow MICHELLEALEKSANDAR 06/05 Released w/o Limitations [facility] [place] [address](A MH S01B Juan J ) [place] [address](AMH S01B Juan J) OUTPATIENT [id number] ftscall MICHELLEALEKSANDAR 06/26 Released w/o Limitations [facility] [place] [address](A MH S01B Juan J ) [facility] [place] [address](Opt [place]metry [facility] [id number] Notes Entered by: MARIA A CALVO 20 Aug 2015 06 ------- ------- ------- ------- -- REORDER RAMEZ CARRINGTON 08/20 Released w/o Limitations [facility] [place] [address](O ptometr y C) [place] [place] [address](AMH S01B Juan J) OUTPATIENT [id number] SHERRY PREETHI SALAS Davey 08/20 Released w/o Limitations [facility] [place] [address](A MH S01B Juan J ) [address] [place] [address] Group Rashawn [facility]Aud iology Procedure s) OUTPATIENT [id number] Notes Entered by: Hamlet CLEMONS 15 Dec 2017 0851 ------- ------- ------- ------- -- IF MARISSA ROBERSON 12/15 Released w/o Limitations [facility] Rashawn LARA ([facility]A udiolog y Procedu res) [address] [place] [address] Rashawn [facility]Bas e Operation al Medicine Clin) OUTPATIENT [id number] if YAKOV MCPHERSON 12/15 Released w/o Limitations [address] [place] [address] Group Rashawn LARA ([facility])(B ase Operati onal Medicin e Clin) [address] [place] [address])(Opt ometry) OUTPATIENT [id number] Notes Entered by: Davey BOX 15 Dec 2017 1115 ------- ------- ------- ------- -- [facility] w/i PRABHJOT NAIR 12/15 Released w/o Limitations [address] [place] [address])(O ptometr y) [address] [place] [address])([facility] Flight Medicine ) TELE CONSULT [id number] Notes Entered by: DEVIN VUONG RET 19 Apr 2018 1442 ------- ------- ------- ------- -- Appt/No n Enrolle e/ LEATHA Solis 04/19 Referred for Appointment [address] [place] [address])([facility] Flight Medicin e Tm) [address] [place] [address])([facility] Flight Medicine ) OUTPATIENT [id number] Headace s pt will come in @0820 YAKOV MCPHERSON 04/21 Released w/o Limitations [address] [place] [address])(S Cover [employer]creen Flight Medicin e Tm) [address] [place] [address])([facility]) OUTPATIENT [id number] Notes Entered by: GALA WHATLEY 04 Jun 2018 1435 ------- ------- ------- ------- -- Weight Loss GALA WHATLEY 06/04 Released w/o Limitations [address] [place] [address])(N utritio nal Medicin e) [address] [place] [address])([facility]) OUTPATIENT [id number] Notes Entered by: GALA WHATLEY 14 Jun 2018 0857 ------- ------- ------- ------- -- Follow- up Weight Loss GALA WHATLEY 06/14 Released w/o Limitations [address] [place] [address] [facility])(N utritio nal Medicin e) [address] [place] [address])(Alo tt Flight Medicine Tm) OUTPATIENT [id number] Notes Entered by: MARVIN MCCLURE 25 Aug 2018 0751 ------- ------- ------- ------- -- er F/U rhinosi nusitis REBEKA BRISCOE 08/25 Released w/o Limitations [address] [place] [address])(S cott Flight Medicin e Tm) [address] [place] [address])(Aud iology Procedure s) OUTPATIENT [id number] annual WICHO TSANG 07/18 Released w/o Limitations [address] [place] [address])(A udiolog y Procedu res) [address] [place] [address])(Roll Panner ecology) OUTPATIENT [id number] 5 Desires Control .WWE note in [facility]. CAROLYN DEL REAL 08/01 Released w/o Limitations [address] [place] [address])(G ynecojem gy) [address] [place] [address])(Roll Panner ecology) TELE CONSULT [id number] Notes Entered by: BRANDI DEL REAL 09 Aug 2019 0826 ------- ------- ------- ------- -- med order CAROLYN DEL REAL 08/[address] [place] [address])(G ynecojem gy) [address] [place] [address])(Roll Panner ecology) TELE CONSULT [id number] 9 Notes Entered by: BRANDI DEL REAL 10 Aug 2019 1917 ------- ------- ------- ------- -- results MOLLY NOLEN 08/11 Released to Self Care [address] [place] [address])(G ynecojem gy) [address] [place] [address])([facility] tt Flight Medicine Tm) OUTPATIENT [id number] Notes Entered by: JOANNA DURBIN 18 Aug 2019 0743 ------- ------- ------- ------- -- RTFS GEORGE FAY 08/18 Released w/o Limitations [address] [place] [address])(S cott Flight Medicin e Tm) [address] [place] [address])([facility] [place] [facility] tt Flight Medicine Tm) TELE CONSULT [id number] 6 Notes Entered by: KRISTY FLYNN 14 Sep 2019 1508 ------- ------- ------- ------- -- non enrolle e on orders/ SX-hack ing cough [id number] LEATHA Emerson 09/14 Advice Assessment [address] [place] [address])(S cott Flight Medicin e Tm) [address] [place] [address])([facility] [place] tt Flight Medicine Tm) OUTPATIENT [id number] Notes Entered by: JOANNA DURBIN 15 Sep 2019 1302 ------- ------- ------- ------- -- cold symptom s DANNI JONES 09/15 Released w/o Limitations [address] [place] [address])(S cott Flight Medicin e Tm) [address] [place] [address])(Bas e Operation al Medicine Clin) OUTPATIENT [id number] rtfs TASHI RODGERS 09/20 Released w/o Limitations [address] [place] [address])(B ase Operati onal Medicin e Clin) [address] [place] [address])(Roll Panner ecology) TELE CONSULT [id number] Notes Entered by: ANDRADE COLLINS 07 Oct 2019 0808 ------- ------- ------- ------- -- medicat ion request CAROLYN DEL REAL 10/[address] [place] [address])(G toni gy) [address] [place] [address])([facility] [place] [facility] tt Flight Medicine Tm) TELE CONSULT [id number] Notes Entered by: DUDLEY DWYER 14 Nov 2019 1608 ------- ------- ------- ------- -- HAIMS/H uang/km BHARATH Garcia 11/13 Other Not Elsewhere Classified [address] [place] [address])(S cott Flight Medicin e Tm) [address] [place] [address])(Opt ometry) OUTPATIENT [id number] routine acclp MARKANDREAELLA Huggins 11/17 Released w/o Limitations [address] [place] [address])(O ptometr y) [address] [place] [address])([facility]) TELE CONSULT [id number] Notes Entered by: JACQUELINE STEPHENS 11 Apr 2020 1338 ------- ------- ------- ------- -- Virtual RTFS JACQUELINE STEPHENS 04/[address] [place] [address])(9 [facility]) [address] [place] [address])(War rior Op Med Cln Tm A Ad) TELE CONSULT [id number] 7 Notes Entered by: GAUDENCIO SOLORZANO 19 Jun 2020 1047 ------- ------- ------- ------- -- covid testing COLLIN CAMPOS 06/19 Referred for Appointment [address] [place] [address])(W arrior Op Med Cln Tm A Ad) [address] [place] [address])(Santo demic Virus) OUTPATIENT [id number] 2 Covid testing LALI SOLORZANO 06/20 Released w/o Limitations [address] [place] [address])(P andemic Virus) [address] [place] [address])(War rior Op Med Cln Tm A Ad) TELE CONSULT [id number] 3 Notes Entered by: GIUSEPPE LOPEZ 22 Jun 2020 0953 ------- ------- ------- ------- -- NEG Covid Results BRYAN LOPEZ 06/22 Released to Self Care [facility])(W arrior Op Med Cln Tm A Ad) [address] [place] [address])(War rior Op Med Cln Tm A Ad) TELE CONSULT [id number] 5 Notes Entered by: SHARI BOLDEN 25 Jun 2020 0736 ------- ------- ------- ------- -- Neg COVID results - PUJA ZAMORA 06/25 Released to Self Care [address] [place] [address] Group [facility])(W arrior Op Med Cln Tm A Ad) [address] [place] [address])([facility]) OUTPATIENT [id number] Notes Entered by: LEIGHTON SANCHEZ 26 Jul 2020 1518 ------- ------- ------- ------- -- RTFS JACQUELINE STEPHENS 07/26 Released w/o Limitations [address] [place] [address])(mi [facility]) [address] [place] [address])([facility]) TELE CONSULT [id number] Notes Entered by: JACQUEILNE STEPHENS 21 Dec 2020 1032 ------- ------- ------- ------- -- Ground testing JACQUELINE STEPHENS 12/[address] [place] [address])( [facility]) [address] [place] [address])(9[facility]) TELE CONSULT [id number] 4 Notes Entered by: CIARA GARCIA 17 Jan 2021 1534 ------- ------- ------- ------- -- Ground testing RONI GARCIA 01/17 Other Not Elsewhere Classified [address] [place] [address])( [facility]) [address] [place] [address] [facility] ([facility]Opt ometry) OUTPATIENT [id number] Routine Eye Exam SELENA FLORES 01/23 Released w/o Limitations [address] [place] [address] Rashawn B ([facility])(O ptometr y) [address] [place] [address] Rashawn B [facility] Flight Medicine ) TELE CONSULT [id number] Notes Entered by: MARYAM BURGOS 24 Jan 2021 0907 ------- ------- ------- ------- -- RASHAWN ENNIS 01/[address] [place] [address] Rashawn [facility])(S Cover Lockscreen Flight Medicin e Tm) [address] [place] [address] Rashawn [facility])([facility] Flight Medicine ) OUTPATIENT [id number] 5 Notes Entered by: JACQUELINE STEPHENS 24 Jan 2021 1448 ------- ------- ------- ------- -- JACQUELINE DE LUNA 01/24 Released w/o Limitations [address] [place] [address])(S Cover [employer] Flight Medicin e Tm) [address] [place] [address])(Opt ometry) OUTPATIENT [id number] Notes Entered by: ANDREA TERAN 25 Jan 2021 1201 ------- ------- ------- ------- -- Contact lens follow- up/adju stment SELENA FLORES 01/25 Released w/o Limitations [address] [place] [address] Rashawn HASSANB ([facility])(O ptometr y) [address] [place] [address] Rashawn [facility])(932 Primary Care Clinic) TELE CONSULT [id number] 5 Notes Entered by: JACQUELINE STEPHENS 04 Feb 2021 0948 ------- ------- ------- ------- -- JACQUELINE Carey 02/[address] [place] [address] Rashawn B ([facility]) [address] [place] [address])(Santo demic Virus) OUTPATIENT [id number] symptom atic/NV L/932AE /PCR JACQUELINE STEPHENS 02/04 Released w/o Limitations [address] [place] [address])(P andemic Virus) [address] [place] [address])([facility] tt Flight Medicine Tm) TELE CONSULT [id number] Notes Entered by: RICH RANDOLPH 04 Feb 2021 1632 ------- ------- ------- ------- -- ooc GEORGE FAY 02/[address] [place] [address])(S cott Flight Medicin e Tm) [address] [place] [address])([facility] [place] [facility] tt Flight Medicine Tm) TELE CONSULT [id number] Notes Entered by: Milton FAY 08 Mar 2021 1826 ------- ------- ------- ------- -- PATITO GEORGE FAY 03/[address] [place] [address])(S Cover [employer]ockscreen Flight Medicin e Tm) [address] [place] [address])([facility] tt Flight Medicine Tm) TELE CONSULT [id number] 2 Notes Entered by: Milton FAY 11 Mar 202112 ------- ------- ------- ------- -- ER visit GEORGE FAY 03/[address] [place] [address])(S cott Flight Medicin e Tm) [address] [place] [address])([facility] tt Flight Medicine Tm) OUTPATIENT [id number] RTFS ER GEORGE FAY 03/14 Released w/o Limitations [address] [place] [address])(S cott Flight Medicin e Tm) [address] [place] [address])([facility]) TELE CONSULT [id number] 3 Notes Entered by: JACQUELINE STEPHENS 18 Mar 2021 0914 ------- ------- ------- ------- -- Ground testing JACQUELINE STEPHENS 03/[address] [place] [address])(9 [facility]) [address] [place] [address])([facility]) TELE CONSULT [id number] 2 Notes Entered by: JACQUELINE STEPHENS 08 Apr 2021 1419 ------- ------- ------- ------- -- Ground testing complet ion JACQUELINE STEPHENS 04/[address] [place] [address] Rashawn HASSANCherelle [facility] 32 [facility]) [facility](Santo demic Virus) OUTPATIENT [id number] Notes Entered by: MU WARREN 16 Apr 2021 0755 ------- ------- ------- ------- -- COVID MU FLOOD 04/16 Released w/o Limitations [facility](P andemic Virus) [facility] OUTPATIENT [id number] 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 07/25 Sick at Home/Quarter s [facility] Fac[facility] OUTPATIENT [id number] 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 08/26 Released w/o Limitations [facility] [address] [place] [address])(Sco tt Flight Medicine Tm) TELE CONSULT [id number] Notes Entered by: KRISTY FLYNN 25 Dec 2021 0841 ------- ------- ------- ------- -- doreen narayanan /adina /[phone] JOI Tellez 12/25 Other Not Elsewhere Classified [address] [place] [address])(S cott Flight Medicin e Tm) [address] [place] [address])(Opt ometry) OUTPATIENT [id number] Notes Entered by: LACEY VIDALSE 14 Mar 2022 1444 ------- ------- ------- ------- -- Glasses Ordered LACEY VIDALES 03/14 Released w/o Limitations [facility] Rashawn HASSANB ([facility])(O ptometr y) [facility] Rashawn B ([facility])(Roll Panner ecology) OUTPATIENT [id number] [facility] CAROLYN DEL REAL 03/19 Released w/o Limitations [address] [place] [address] Group Rashawn HASSANB ([facility])(G ynecolo gy) [address] [place] [address] Rashawn HASSANB ([facility])(Roll Panner ecology) TELE CONSULT [id number] 2 Notes Entered by: BRANDI DEL REAL 21 Mar 2022 1230 ------- ------- ------- ------- -- results GERSONEZEQUIEL LIUDonal Pollack 03/21 Released to Self Care [address] [place] [address] Group Rashawn HASSANB ([facility])(G ynecolo gy) [address] [place] [address] Rashawn HASSANB [facility])(Roll Panner ecology) TELE CONSULT [id number] 1 Notes Entered by: BRANDI DEL REAL 31 Mar 2022 0919 ------- ------- ------- ------- -- results PERLITA PECK 03/[address] [place] [address] Group Rashawn HASSANB ([facility])(G ynecolo gy) [address] [place] [address] Rashawn HASSANB [facility])(Nut [facility] Medicine) OUTPATIENT [id number] Notes Entered by: GALA WHATLEY 01 Apr 2022 1338 ------- ------- ------- ------- -- GLB #2 GALA WHATLEY 04/01 Released w/o Limitations [facility] [employer] ([facility])(N utritio nal Medicin e) [facility] Rashawn B ([facility])([facility]) OUTPATIENT [id number] Notes Entered by: CHRISTINA KING 01 Apr 2022 1508 ------- ------- ------- ------- -- Weight loss GIL KING 04/01 Released w/o Limitations [address] [place] [address] Group Rashawn [facility])(N utritio nal Medicin e) [employer] Rashawn [facility])([facility] Flight Medicine Tm) TELE CONSULT [id number] Notes Entered by: Rohan HERRERA 30 Apr 2022 1407 ------- ------- ------- ------- -- Appt Request /Adina / JOI CHRISTIE 04/30 Referred for Appointment [employer] Rashawn [facility])(S cott Flight Medicin e Tm) [employer] Rashawn [facility])([facility] tt Flight Medicine Tm) OUTPATIENT [id number] [address] [phone] PATSY NATION 05/16 Released w/o Limitations [employer] Rashawn [facility])(S cott Flight Medicin e Tm) [employer]([facility] Medicine) OUTPATIENT [id number] POSSIBL E LISA RAVI 12/17 Released with Work/Duty Limitations [employer](F light Medicin e) [employer]([facility] Medicine) TELE CONSULT [id number] Notes Entered by: MATT SANDHU 17 Dec 2022 1047 ------- ------- ------- ------- -- Labs result relay HEATHER ZAMORA 12/17 Released to Self Care [employer](F light Medicin e) [facility] Outpatient Encounter [id number] NICHOLE VIDALES 09/21 [facility] OFFICE O/P NEW MOD 45 MIN [id number] Diagnos is: ICD-10- CM E03.9 Hypothy roidism , unspeci fied BHARDWAJ,AR MIDA A 09/22 [facility] Outpatient Encounter [id number] FABRICIO INGRAM C 09/24 [facility] SERV [id number] Diagnos is: ICD-10- CM Z71.89 Other specifi ed counseling aide WILFRED Fulton 09/27 [facility] Outpatient Encounter [id number] 09/29 [facility] Outpatient Encounter [id number] FABRICIO INGRAM C 09/30 [facility] Outpatient Encounter [id number] 09/30 [facility] Outpatient Encounter [id number] YUMIKO ALBRECHT M 09/30 [facility] Outpatient Encounter [id number] 09/30 [facility] Outpatient Encounter [id number] Diagnos is: ICD-10- CM N39.9 Disorde r of urinary system, unspeci fied Aayush PELAEZ ONSTANCE D 10/01 [facility] Outpatient Encounter [id number] 10/01 [facility] Outpatient Encounter [id number] 10/04 [facility] Outpatient Encounter [id number] FABRICIO INGRAM C 10/06 [facility] SELF CARE MNGMENT TRAINING [id number] Diagnos is: ICD-10- CM M54.2 Cervica lgia DONS,AKBAR MIN J 10/29 [facility] Outpatient Encounter [id number] 11/08 [facility] MANUAL THERAPY 1/ [facility] [id number] Diagnos is: ICD-10- CM M54.2 Cervica lgia DONS,AKBAR MIN J 11/15 [facility] Outpatient Encounter [id number] 11/22 [facility] OFFICE O/P NEW LOW 30 MIN [id number] Diagnos is: ICD-10- CM H52.13 Myopia, bilater al CLAY,BRENDA- LAVON THI 11/26 [facility] MEDICAL NUTRITION INDIV IN [id number] [id number] Diagnos is: ICD-10- CM E66.9 Obesity , unspeci fied SHANNAN DEGROOT C 12/03 [facility] Outpatient Encounter [id number] 02/15 [facility] [id number]-[id number] D AEROSPACE MEDICINE SQ 4AF Care Not Rendered [id number] Hypothy roidism , unspeci fied,Ge neraliz ed anxiety disorde r,Aller gic rhiniti s due to pollen, Encount er for issue of other medical certifi johnathan 03/26 Discharge Disposition: Home or Self Care 8320R-9 32D AEROSPA CE MEDICIN E SQ 4AF [facility] Outpatient Encounter [id number] 04/24 [facility] N [facility] Outpatient Encounter [id number] 05/06 [facility] Outpatient Encounter [id number] 05/06 [facility] OFFICE O/P EST SF 10 MIN [id number] Diagnos is: ICD-10- CM L30.9 Dermati tis, unspeci Aayush Newman D 05/06 [facility] Outpatient Encounter [id number] 05/06 [facility] Outpatient Encounter [id number] 05/07 [facility] Outpatient Encounter [id number] 06/18 [facility] INTRM OPH EXAM EST PATIENT [id number] Diagnos is: ICD-10- CM H52.13 Myopia, bilPHILIPPE Wong THI 10/21 [facility] Outpatient Encounter [id number] 12/23 [facility] Procedures Combined list of: 1) Procedures from Department of Veterans Affairs facilities going back up to thelast 18 months, not all VA non-surgical procedures are included; 2) All procedures from the Department of Defense facilities. Procedure Procedure Type Code Date Perfomer Comments Sourc e No data available for this section [id number] D [facility] GRP-FAIR HILD HEPATITIS B VACCINE (HEPB), ADULT DOSAGE, 3 DOSE SCHEDULE, FOR INTRAMUSCULAR USE [facility] THERAPEUTIC, PROPHYLACTIC, OR DIAGNOSTIC INJECTION (SPECIFY SUBSTANCE OR DRUG); SUBCUTANEOUS OR INTRAMUSCULAR [facility] FITTING OF SPECTACLES, EXCEPT FOR APHAKIA; MONOFOCAL DoD PURE TONE AUDIOMETRY (THRESHOLD), AUTOMATED; AIR ONLY DoD HANDLING AND/OR CONVEYANCE OF SPECIMEN FOR TRANSFER FROM THE OFFICE TO A LABORATORY DoD MEDICAL NUTRITION THERAPY; INITIAL ASSESSMENT AND INTERVENTION, INDIVIDUAL, [id number] WITH THE PATIENT, EACH 15 MINUTES DoD MEDICAL NUTRITION THERAPY; GROUP (2 OR MORE INDIVIDUAL(S)), EACH 30 MINUTES DoD SCREENING PAPANICOLAOU SMEAR; OBTAINING, PREPARING AND CONVEYANCE OF CERVICAL OR VAGINAL SMEAR TO LABORATORY DoD FITTING OF SPECTACLES, EXCEPT FOR APHAKIA; MONOFOCAL DoD PRESCRIPTION OF OPTICAL AND PHYSICAL CHARACTERISTICS OF AND FITTING OF CONTACT LENS, WITH MEDICAL SUPERVISION OF ADAPTATION; CORNEAL LENS, BOTH EYES, EXCEPT FOR APHAKIA DoD PRESCRIPTION OF OPTICAL AND PHYSICAL CHARACTERISTICS OF AND FITTING OF CONTACT LENS, WITH MEDICAL SUPERVISION OF ADAPTATION; CORNEAL LENS, BOTH EYES, EXCEPT FOR APHAKIA DoD PRESCRIPTION OF OPTICAL AND PHYSICAL CHARACTERISTICS OF AND FITTING OF CONTACT LENS, WITH MEDICAL SUPERVISION OF ADAPTATION; CORNEAL LENS, BOTH EYES, EXCEPT FOR [place]HAKIA DoD PURE TONE AUDIOMETRY (THRESHOLD), AUTOMATED; AIR ONLY DoD MEDICAL NUTRITION THERAPY; RE-ASSESSMENT AND INTERVENTION, INDIVIDUAL, [id number] WITH THE PATIENT, EACH 15 MINUTES DoD MEDICAL NUTRITION THERAPY; INITIAL ASSESSMENT AND INTERVENTION, INDIVIDUAL, [id number] WITH THE PATIENT, EACH 15 MINUTES DoD DETERMINATION OF REFRACTIVE STATE DoD ELECTROCARDIOGRAM, ROUTINE ECG WITH AT LEAST 12 LEADS; WITH INTERPRETATION AND REPORT DoD PURE TONE AUDIOMETRY (THRESHOLD), AUTOMATED; AIR ONLY [facility] INFECTIOUS AGENT DETECTION BY NUCLEIC ACID (DNA OR RNA); SEVERE ACUTE RESPIRATORY SYNDROME CORONAVIRUS 2 (SARS-COV-2) (CORONAVIRUS DISEASE [COVID-19]), AMPLIFIED PROBE TECHNIQUE [facility] Medical Nutrition Therapy Re-a e ment, Intervention Medical Nutrition Therapy Re-assessment, Intervention [id number] [facility] Medical Nutrition Therapy Initial A e ment, Intervention Medical Nutrition Therapy Initial Assessment, Intervention [id number] [facility] Determination Of Refractive State Determination Of Refractive State [address] [facility] Ophthalmological New Patient Start Comprehensive Care Ophthalmological New Patient Start Comprehensive Care [address] [facility] Electrocardiogram Electrocardiogram 12119 12/[address] [facility] Tonometry Tonometry [address] [facility] Extensive Color Vision Testing Extensive Color Vision Testing [address] [facility] Visual Goldman Test Limited Examination Visual Goldman Test Limited Examination [id number] [facility] Screening Test Of Visual Acuity, Quantitative, Bilateral Screening Test Of Visual Acuity, Quantitative, Bilateral [id number] [facility] Threshold Audiogram (Pure Tone) Automated Threshold Audiogram (Pure Tone) Automated 0208T MARISSA ROSS [facility] Spectacles Services Fitting Monofocals (Not For Aphakia) Spectacles Services Fitting Monofocals (Not For Aphakia) [address] [facility] Immunization Administration One Vaccine Immunization Administration One Vaccine 30837 [address] [facility] Supervised Injection Intramuscular Antibiotic Supervised Injection Intramuscular Antibiotic [address] [facility] Hepatitis B Vaccine (Active); 20 Years and Above Hepatitis B Vaccine (Active); 20 Years and Above [address] [facility] Immunization Admin By Intranasal / Oral Route One Vaccine Immunization Admin By Intranasal / Oral Route One Vaccine 08833 [facility] Immunization Admin Intranasal / Oral Each Additional Vaccine Immunization Admin Intranasal / Oral Each Additional Vaccine 43828 [facility] Immunization Administration Each Additional Vaccine Immunization Administration Each Additional Vaccine 16214 [facility] Vaccines Adenovirus Type 4 Live, For Oral Use Vaccines Adenovirus Type 4 Live, For Oral Use 22692 [facility] Vaccines Adenovirus Type 7 Live, For Oral Use Vaccines Adenovirus Type 7 Live, For Oral Use 68740 [facility] Tdap Vaccine Tdap Vaccine 89970 [facility] Vaccines Viral Polio, Inactivated (Salk) Vaccines Viral Polio, Inactivated (Salk) 59764 [facility] Ear mold/insert, not disposable, any type NEGIN NORTON [facility] Patient education, not otherwise cla ified, non-physician provider, group, per se ion NORTONNEGIN Mcnulty [place] Threshold Audiogram (Pure Tone) Automated Threshold Audiogram (Pure Tone) Automated 0208T NORTONNEGIN Mcnulty SAdelso [facility] Spectacles Services Fitting Monofocals (Not For Aphakia) Spectacles Services Fitting Monofocals (Not For Aphakia) 49923 015 JENNIFER MA Ophthalmological New Patient Start Comprehensive Care Ophthalmological New Patient Start Comprehensive Care [id number] 015 FRANCESCA [place] Determination Of Refractive State Determination Of Refractive State 41591 015 [place] Miller-Supervised Specimen Handling / Transfer: Office To Lab -Supervised Specimen Handling / Transfer: Office To Lab 99400 MARY GARCIA Venipuncture Venipuncture 40791 MARY GARCIA Threshold Audiogram (Pure Tone) Automated Threshold Audiogram (Pure Tone) Automated 0208T WICHO TSANG [facility] Ophthalmological Prior Patient Start Comprehensive Care Ophthalmological Prior Patient Start Comprehensive Care [address] [facility] Determination Of Refractive State Determination Of Refractive State [address] [facility] Prescription & Fitting Bilateral Corneal Lenses (Not Aphakia Prescription & Fitting Bilateral Corneal Lenses (Not Aphakia [address] [facility] Ophthalmological Prior Patient Start Intermediate Level Care Ophthalmological Prior Patient Start Intermediate Level Care [address] [facility] Spectacles Services Fitting Monofocals (Not For Aphakia) Spectacles Services Fitting Monofocals (Not For Aphakia) [address] [facility] Screening papanicolaou smear; obtaining, preparing and conveyance of cervical or vaginal smear to laboratory CAROLYN DEL REAL [facility] Medical Nutrition Therapy Group (2 or More Individual(s)) Medical Nutrition Therapy Group (2 or More Individual(s)) [address] [facility] Medical Nutrition Therapy Initial A e ment, Intervention Medical Nutrition Therapy Initial Assessment, Intervention [address] [facility] Social History Combined list of available smoking, tobacco, and other social history from Department of Defense and Veterans Affairs facilities. Social History Type Response Date Comment [facility] e Tobacco smoking status PAIS VA-TOBACCO NEVER USED 09/22/2023 [facility] Sex Representation Female (finding) 03/22/2018 Unknown Organization Sexual Orientation [id number] MED [facility] Gender identity [id number] D [facility] This section is an empty social history section. DoD Assessment and Plan Combined list of future care activities from Department of Defense and Veterans Affairs facilities (e.g., assessment and plan notes, appointments, orders, and referrals). Additional future care activities may be listed in the Plan of Care section. Result Assessment and Plan Date Source Assessment and Plan Extracted from:Title : Aeromedical Waiver Exam Author: JACQUELINE STEPHENS Date: 03/26/24 1. E ncounter for issue of other medical certificate Aeromedical Waiver for: Hypothyroidism and Gerneralized Anxiety disorder Aeromedical Waiver type: Initial Naya rojas i s a 3 0 Years o ld F keagan p levy f or A eromedical Waiver appointment. MSD and AMWG d iscussed and reviewed with patient. History obtained from patient in conjunction with chart review including GILMAR, JLV, S ubmitted records a nd ASIMS. Pertinent physical exam items preformed in accordance with AMW. Aeromedical Waiver to be?submitted in AIMWTS once complete. Timeline expectations discussed with patient. Patient is in understanding. Reportable Events: N one Profile: No DR/MR/FR Retention: Meets Standards PRAP: N /A Aero: D NIF, Waiver Required > 1 20 minutes spent in chart review, d irect patient care, discussion with other providers (both today and at [facility]), documentation of this encounter in GILMAR/AIMWTS, and/or troubleshooting [facility] [place] system errors. 2. 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 Repeat TSH pending, as last draw was only 6 days after dose adjustment; SM to obtain through senior application security consultant or PCP and submit records -PE WNL, fatigue has resolved, she continues to work toward weight loss through diet and exercise AMD: Cont DNIF; sx resolved, waiver eligible pending normal thyroid studies 3. 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 A llergic rhinitis due to tree pollen -Responding well to Flonase -Not taking Zyrtec and v/u that she may take Claritin or Juanita for oral tx. -No dx of chronic sinusitis -Does not required continued speciality care -Meets aeromedical standards, but given hx of speciality care, will add note to AMS for clarification AMD: Jacqueline Stephens APRN, SELF PROPELLED MINING MACHINE OPERATOR-C . [facility], [place], [facility] Aeromedical Nurse Practitioner [address] Extracted from:Title: Immersion Foot Initial Author: CASANDRA SNELL Date: 03/30/18 1. I mmersion foot Suspect immersion foot today due to prolonged exposure to cold and wet environment. B listers on bilateral toes and right foot paresthesia likely to resolve after removal from environment. R eassuring no current signs or symptoms of infection however will continue to monitor. G ave bacitracin, bandages, and mole skin to apply to areas of concern in the morning. S tressed importance of removing wet boots and socks and letting feet dry overnight. 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 I f ulcers, progression of tissue sloughing, discoloration, erythema, drainage, or inability to walk develop then contact medics immediately. If no improvement in 24 hours then follow up with [facility] for f juanita e valuation. 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 H last Down 2992 issues in field. N o deviations from IDMT protocols. Ordered: Office Visit Level 1 New [id number] Addendum by JIM DE ANDA on April 05, 2018 10:14:11 PDT IDMT documentation above has been reviewed. Petra winkler was not present at time of the evaluation and therefore did not perform patient interview or examination. Counter-signature indicates IDMT treatment was reviewed separately for appropriateness and encounter feedback was discussed with IDMT and documented on IDMT Form 4336 IAW THIAGO 44-103 and the [facility] IDMT Medical and Dental Treatment Protocols. 02/17/2025 [id number] AEROSPACE [facility]IC[facility] SQ 4AF Assessment and Plan Extracted from:Title : Aeromedical Waiver Exam Author: JACQUELINE STEPHENS Date: 03/26/24 1. E ncounter for issue of other medical certificate Aeromedical Waiver for: Hypothyroidism and Gerneralized Anxiety disorder Aeromedical Waiver type: Initial Naya rojas i s a 3 0 Years o ld F keagan p levy f or A eromedical Waiver appointment. MSD and AMWG d iscussed and reviewed with patient. History obtained from patient in conjunction with chart review including NIKKI SCHAFER, S ubmitted records a nd ASIMS. Pertinent physical exam items preformed in accordance with AMWG. Aeromedical Waiver to be?submitted in AIMWTS once complete. Timeline expectations discussed with patient. Patient is in understanding. Reportable Events: N one Profile: No DR/MR/FR Retention: Meets Standards PRAP: N /A Aero: D NIF, Waiver Required > 1 20 minutes spent in chart review, d irect patient care, discussion with other providers (both today and at [facility]), documentation of this encounter in GILMAR/AIMWTS, and/or troubleshooting [facility] [place] system errors. 2. 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 Repeat TSH pending, as last draw was only 6 days after dose adjustment; SM to obtain through senior application security consultant or PCP and submit records -PE WNL, fatigue has resolved, she continues to work toward weight loss through diet and exercise AMD: Cont DNIF; sx resolved, waiver eligible pending normal thyroid studies 3. 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 A llergic rhinitis due to tree pollen -Responding well to Flonase -Not taking Zyrtec and v/u that she may take Claritin or Juanita for oral tx. -No dx of chronic sinusitis -Does not required continued speciality care -Meets aeromedical standards, but given hx of speciality care, will add note to AMS for clarification AMD: Jacqueline Stephens, JET MECHANIC, SELF PROPELLED MINING MACHINE OPERATOR-C . [place], [place], [facility] Aeromedical Nurse Practitioner [address] Extracted from:Title: Immersion Foot Initial Author: CASANDRA SNELL Date: 03/30/18 1. I mmersion foot Suspect immersion foot today due to prolonged exposure to cold and wet environment. B listers on bilateral toes and right foot paresthesia likely to resolve after removal from environment. R eassuring no current signs or symptoms of infection however will continue to monitor. G ave bacitracin, bandages, and mole skin to apply to areas of concern in the morning. S tressed importance of removing wet boots and socks and letting feet dry overnight. 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 I f ulcers, progression of tissue sloughing, discoloration, erythema, drainage, or inability to walk develop then contact medics immediately. If no improvement in 24 hours then follow up with [facility] for f urther e valuation. 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 H last Down 6348 issues in field. N o deviations from IDMT protocols. Ordered: Office Visit Level 1 New [id number] Addendum by JIM DE ANDA on April 05, 2018 10:14:11 PDT IDMT documentation above has been reviewed. Petra winkler was not present at time of the evaluation and therefore did not perform patient interview or examination. Counter-signature indicates IDMT treatment was reviewed separately for appropriateness and encounter feedback was discussed with IDMT and documented on IDMT Form 4336 IA THIAGO 44-103 and the [facility] IDAL Medical and Dental Treatment Protocols. 02/17/2025 [id number] [facility] Functional Status Combined list of recent functional and cognitive assessments recorded at Department of Defense and Veterans Affairs (VA).VA Functional [place] Measurement (FIM) Scale: 1 = Total Assistance (Subject = 0% +), 2 = Maximal Assistance (Subject = 25% +), 3 = Moderate Assistance (Subject = 50% +), 4 = Minimal Assistance (Subject = 75% +), 5 = Supervision, 6 = Modified [place] (Device), 7 = Complete [place] (Timely, Safely). Assessment Date/Time Source Assessment Type Assessment Skill Assessment Score Assessment Details No data available for this section
--- OUTSIDE RECORDS SUMMARY | 2025-02-17 15:38 | XMS_ITS | Referral Summary ---
Author Organization [facility] Care Team Providers Care American Studies Professor Name Role Phone Rigo Sotelo MD Primary Care Provider [phone] Encounters Date Type Department Care Team Description 12/23/2024 Telephone [facility] Medical [facility] Family Medicine at [address] [place] [address] Rigo Sotelo MD Med Refill 12/15/2024 3:15 PM CDT Office Visit [facility] Family Medicine at [address] [place] [address] Rigo Sotelo MD Acute tonsillitis due to other specified organisms (Primary Dx) 11/30/2024 Orders Only Urology Alvaro Roberto MD Acquired complex renal cyst (Primary Dx) from Last 3 Months Allergies Active Allergy Reactions Criticality Noted Date Comments Other Itching Low 12/21/2023 Tree pollen Medications buPROPion XL (WELLBUTRIN XL) 300 mg 24 hr tabletIndications: 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 21 tablet 5 Active dapsone 7.5 % gel with pump Apply 1 each topically daily 90 g 1 5 01/13/20 26 Active tretinoin (RETIN-A) 0.05 % cream Apply topically nightly 45 g 1 5 Active levothyroxine (SYNTHROID) 88 mcg tabletIndications: Acquired hypothyroidism Take 1 tablet (88 mcg total) by mouth daily 90 tablet 2 5 Active Active Problems Problem Noted Date Diagnosed Date Hypothyroidism, unspecified 12/21/2023 Myopia, bilateral 12/21/2023 Obesity, unspecified 12/21/2023 Assessment & Plan (12/21/2023 3:09 PM CDT): Recommended aggressive Lifestyle modification and weight loss for improving overall weight related health conditions. Follow up in 1 or 3 months for continuing Lifestyle Medicine education and management visit. Recommend Lifestyle/Nutrition/Weight Loss Seminar on every other Tuesdays @ 5pm. 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 Assessment & Plan (01/10/2024 6:41 PM CDT): I explained to the patient the goal of treatment of Jorge's thyroiditis is to normalize TSH Will update TFTs today including TSH, free T4 and free T3 I will call patient if we need to make adjustment to the levothyroxine dose If that is the case, will recheck TFTs again in 6 to 8 weeks Follow-up in 6 recommended Sleep apnea 04/15/2023 Renal cyst 03/09/2023 Hypothyroidism 10/27/2022 Hyperlipidemia 10/22/2022 Irregular periods 10/22/2022 Weight gain 10/22/2022 Poison bebe dermatitis 05/06/2013 Immunizations Immunization Administration Dates Next Due Adenovirus 03/28/2015 Anthrax 06/22/2021,01/07/2021,11/26/2020 DTaP 11/14/1998, 5,1994,07/02,1994 HPV, Unspecified 11/26/2007,06/08/2007, 7 Hep A, Ped Unspecified 04/08/2007 Hep A, Pediatric 04/08/2007 Hep B Vaccine 12/22/2015,05/18/2015,03/28/2015 Hep B, Adolescent or Pediatric 1994,1993,1994 Hib (PRP-T) 06/04/1995, 5,1994,05/07 IPV 03/28/2015, 9,1994,06/22,1994 Influenza, Quadrivalent, Spl it, Preservative Free, Intramuscular 04/22/2023,05/21/2022,06/27/2020,05/17,05/02/2018,05/23/2017 Influenza, Trivalent, IM (MDV) 03/26/2021 Influenza, Trivalent, Preser vative Free, Intramuscular 05/25/2016,05/01/2015 Influenza, Unspecified 04/15/2024(Deferred: Rajni ent decision) Kristen (J&J) SARS-CoV-2 Vaccination 10/27/2020 MMR 11/14/1998,03/03/1995 Meningococcal MCV4P (Menactra) 06/22/2021,2014 Td, Not Adsorbed 06/19/2005 Td, Unspecified 06/19/2005 Tdap 03/28/2015,01/22/2011 Typhoid Inactivated 11/26/2020 Yellow Fever 06/22/2021 Social History Tobacco Use Types Packs/Day Years Used Date Smoking Tobacco: Never Smokeless Tobacco: Never Tobacco Cessation:Counseling Given: Not Answered Alcohol Use Standard Drinks/Week Comments Yes 0 (1 standard drink = 0.6 oz pur e alcohol) Social AUDIT-C Answer Date Recorded Q1: How often do you have a drink containing alc ohol? Monthly or less 12/15/2024 Q2: How many drinks containi ng alcohol do you have on a typical day when you are drinking? 1 or 2 12/15/2024 Q3: How often do you have si x or more drinks on one occasion? 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 Gender Identity Not on file Sexual Orientation Not on file Last Filed Vital Signs Vital Sign Reading Time Taken Comments Blood Pressure 113/78 12/15/2024 3:43 PM CDT Pulse 86 12/15/2024 3:43 PM CDT Temperature 37.1 C (98.7 F) 12/15/2024 3:43 PM CDT Respiratory Rate 18 12/15/2024 3:43 PM CDT Oxygen Saturation 99% 12/15/2024 3:43 PM CDT Inhaled Oxygen Concentration - - Weight 77.4 kg (170 lb 9.6 oz) 12/15/2024 3:43 P M CDT Height 157.5 cm (5' 2) 12/15/2024 3:43 PM CDT Body Mass Index 31.2 12/15/2024 3:43 PM CDT Plan of Treatment Not on file Insurance [place] [address] [facility] Care Teams American Studies Professor Relationship Specialty Start Date End Date Rigo Sotelo MD [address] [place] [address] PCP - General Family Medicine 09/21/23
--- OUTSIDE RECORDS SUMMARY | 2025-02-17 15:38 | XMS_ITS | Clinical Summary ---
Author Organization [facility] Care Team Providers Care Mechanic And Welder Name Role Phone Rigo Sotelo MD Primary Care Provider [phone] Allergies Active Allergy Reactions Criticality Noted Date [...] Weight gain 10/22/2022 Poison bebe dermatitis 05/06/2013 Encounters Date Type Department Care Team Description 12/23/2024 Telephone [facility] Medical [facility] Family Medicine at [address] [place] [address] Rigo Sotelo MD Med Refill 12/15/2024 3:15 PM CDT Office Visit [facility] Family Medicine at [address] [place] [address] Rigo Sotelo MD Acute tonsillitis due to other specified organisms (Primary Dx) 11/30/2024 Orders Only Urology Alvaro Roberto MD Acquired complex renal cyst (Primary Dx) from Last 3 Months Immunizations Immunization Administration Dates Next Due Adenovirus [...] 03/28/2015,01/22/2011 Typhoid Inactivated 11/26/2020 Yellow Fever 06/22/2021 Medical History Medical History Date Comments Jorge's disease Hypothyroid Anxiety Cyst of left kidney Cervical spine arthritis Deviated septum Family History Medical History Relation Name Comments Diabetes Maternal Grandfather Heart attack Maternal Grandfather Heart disease Maternal Grandfather Diabetes Maternal Grandmother Relation Name Status Comments Father Other Maternal Grandfather Alive Maternal Grandmother Alive Mother Alive Social History Tobacco Use Types [...] on file Legal Sex 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 Gender Identity Not on file Sexual Orientation Not on file Obstetrics History Para Term AB IAB SAB Ectopic Multiple Livin g Live Births 0 0 0 0 0 0 0 0 0 0 0 Last Filed Vital Signs Vital Sign Reading [...] 12/15/2024 3:43 PM CDT Plan of Treatment Health Maintenance Due Date Last Done Comments Cervical Cancer Screening 1994 Hepatitis C Screening 1994 Varicella Vaccines (1 of 2 - 13+ 2-dose series) 2007 Covid-19 Vaccine ( season) 2024 10/27/2020 Regular Well Visit/Exam 18-64 09/20/2024 09/21/2023 Depression Screening 01/05/2025 01/06/2024, 12/21/2023, 09/21/2023 Influenza Vaccine (#1) 2025 3, 05/21/2022, 03/26/2021, Additional history exists DTaP/Tdap/Td Vaccine (8 - Td or Tdap) 03/28/2025 03/28/2015, 01/22/2011, 06/19/2005, Additional history exists HPV Vaccines Completed 11/26/2007, 05/21, 04/08/2007 Hepatitis B Screening Completed 12/22/2015 , 05/18/2015, 03/28/2015, Additional history exists Pneumococcal vaccine <65 Aged Out No longer eligible based on patient's age to complete this topic Insurance [facility] CLAIMS [facility] CLAIMS Care Teams Mechanic And Welder Relationship Specialty Start Date End Date Rigo Sotelo MD [address] [place] [address] PCP - General Family Medicine 09/21/23
[2025-02-17 16:20] LABS: Beta HCG Quantitative 191.22 mIU/ML
== END 2025-02-17 15:34 | disposition home or self-care (01) ==
LOC: ANHLAB 15:34
PROVIDERS: PCP Family Medicine; Visit Provider Student in an Organized Health Care Education/Training Program
DX: O20.0 Threatened abortion (principal); Z3A.00 Weeks of gestation of pregnancy not specified
CPT/HCPCS: 36415; 84702

== ENCOUNTER 2025-03-03 17:49 | Outpatient (CLI) | payer OTHER, SELFPAY ==
--- OUTSIDE RECORDS SUMMARY | 2025-03-03 17:52 | XMS_ITS | Patient Health Record ---
Author Organization [facility] Address [address] [facility] [address] [place] [address] Care Team Providers Care Pot Lining Supervisor Name Role Phone Deepak BRUNSON, Rigo Primary Care Provider Karen Miller Unavailable [phone] Jaki Mendosa Unavailable [phone] Allergies No Known Allergies Reason For Referral No Information Medications Medication SIG (Take, Route, Frequency, Duration) Notes Start Date End Date Status Levothyroxine Sodium 75 MCG Oral 11/04/2023 Active Nitrofurantoin Monohyd Macro 100 MG Oral 11/04/2023 Not-Payam ing Clindamycin Phos-Benzoyl Perox 1-5 % External 11/04/2023 Active Monurol 3 GM Oral 11/04/2023 Active Levothyroxine Sodium 50 MCG Oral 11/04/2023 Not-Taking buPROPion HCl ER (XL) 300 MG 1 tablet every morning Oral Once a day; Duration: 30 days please make apt for further refills old provider has left practice, needs a new appointment for further refills Active Naproxen 500 MG Oral 11/04/2023 Act charles Tretinoin 0.025 % External 11/04/2023 A ctive Immunizations Vaccine Route Administration Date Status Comme nts Novel [id number], preservative free Unknown 04/22/2023 Administered Social History Sex Assigned At : Social History Observation Description Sex Assigned At Female Section Notes: Substance UseDo you or have you ever smoked tobacco?: Never smokerHow much tobacco do you smoke?: NoneDo you or have you ever used e-cigarettes or vape?: Never used electronic cigarettesWhat was the date of your most recent tobacco screening?: 07/24/2023What is your level of alcohol consumption?: OccasionalHow many years have you consumed alcohol?: 8Do you use any illicit or recreational drugs?: NoHave you used IV drugs?: NoWhat is your level of caffeine consumption?: HeavyEducation and OccupationWhat is the highest grade or level of school you have completed or the highest degree you have received?: Associate degree: academic programAre you currently employed?: YesWho is your employer?: / studentMarriage and SexualityWhat is your relationship status?: MarriedAre you sexually active?: YesDo you use protection during sex?: NoHow many children do you have?: 0Home and EnvironmentAre there any guns present in your home?: YesAdvance DirectiveDo you have an advance directive?: YesDo you have a medical power of trial attorney?: No Problems Problem Type SNOMED Code ICD Code Onset Dates Problem Status W/U Status Risk Notes Problem Vitamin D deficiency (13046041) Vitamin D deficiency, unspecified (E55.9) 11/04/19 24 Active confirmed Problem Generalized anxiety disorder (56113405) Generalized anxiety disorder (F41.1) 11/04/19 24 Active confirmed Problem 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 (176419424) 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 (E06.3) Active confirmed Encounters Encounter Location Date Provider Diagnosis [facility] [employer] [address] [address] 03/24/2024 Jaki Mendosa Generalized anxiety disorder F41.1 [facility] [employer] [address] 03/24/2024 Jaki Mendosa Generalized anxiety disorder F41.1 [facility] [employer] [address] 09/15/2024 Karen Hennessy Generalized anxiety disorder F41.1 [facility] [employer] [address] 09/26/2024 Karen Hennessy [facility] [place] [address] [facility] [address] [address] 09/28/2024 Karen Hennessy Assessments Encounter Date Diagnosis (ICD Code) Assessment Notes Treatment Notes Treatment Clinical Notes Section Notes 03/24/2024 Generalized anxiety disorder (ICD-10 - F41.1) 03/24/2024 Generalized anxiety disorder (ICD-10 - F41.1) 09/15/2024 Generalized anxiety disorder (ICD-10 - F41.1) Plan Of Treatment No Information Insurance Providers Payer Name Payer Address Payer Phone Subscriber Number Group Number Insured Name Patient Relationship to Insured Coverage Start Date Coverage End Date [facility] [address] [place] [address] [id number] TANISHA MARTINEZ Self - patient is the insured Medical (General) History Medical History History ICD Code Problems: Fatigue Generalized anxiety disorder Hypothyroidism due to Jorge's thyroi ditis Vitamin D deficiency ,
--- OUTSIDE RECORDS SUMMARY | 2025-03-03 17:53 | XMS_ITS | Patient Health Record ---
Author Organization [facility] [place] ([address]) Address [address] [facility] [address] [place] [address] Care Team Providers Care Ethylene Plant Operator Name Role Phone BertoestevanJulisa Primary Care Provider Rosa Rios Unavailable [phone] Allergies No Known Allergies Reason For Referral [...] PedvaxHIB Unknown 06/04/1995 Administered Portal In formation NOC Tdap Unknown 03/28/2015 Administered Portal Infor mation Hepatitis A Unknown 04/08/2007 Administered Portal Info rmation Social History Tobacco Use: Social History Observation Description Date Details (start date - stop date) Never Smoker NA - NA Smoking Smart Form: Question Answer Notes Are you a: never smoker Problems Problem Type SNOMED Code ICD Code Onset Dates Problem Status W/U Status Risk Notes Problem Allergic rhinitis caused by pollen (disorder) (66874234) Allergic rhinitis due to pollen (J30.1) Active confirmed Plan Of Treatment No Information Insurance Providers Payer Name Payer Address Payer Phone Subscriber Number Group Number Insured Name Patient Relationship to Insured Coverage Start Date Coverage End Date [facility] [address] [place] [address] [phone] [id number] Naya [place] Self - patient is the insured Medical (General) History Medical History History ICD Code Hypothyroidism Chronic rhinitis J31.0 Surgical History Surgery Date(Month/Year)
--- OUTSIDE RECORDS SUMMARY | 2025-03-03 17:53 | XMS_ITS ---
Author Organization [facility] [place] ([address]) Address [address] [address] [place] [address] Care Team Providers Care Hammer Operator Name Role Phone Julisa Mcelroy Primary Care Provider UnavailRosa Benitez Unavailable [phone] [facility], [facility] REASON FOR VISIT Multum To Medispan Conversion Encounter Medications Medication SIG (Take, Route, Frequency, Duration) Notes Start Date End Date Status Levothyroxine Sodium 25 MCG 1 tab(s) ora lly once a day; Duration: 30 day(s) Active Encounters Encounter Location Date Provider Diagnosis [address] [address] 01/02/2024 Provider [facility] Plan Of Treatment No Information Progress Notes * Naya MARTINEZ MDOB: [birth year] (30 yo F)Acc No.[id number]:01/02/2024 Patient: Donal Naya STEPHENS Provider: Petra Grimes :1995 A ge:28 Y S ex:Female Date:01/02/2024 Address:[id number] Pcp:Julisa Mcelroy Subjective: * Chief Complaints: * 1 . Multum To Medispan Conversion Encounter. * Medical History: * Medications: T aking Levothyroxine Sodium 25 MCG Tablet 1 tab(s) orally once a day Objective: * Vitals: Assessment: Plan: * Treatment: * Billing Information: * Visit Code: * Procedure Codes: * Electronic signature of Prov bhumir GénesisZ-Migration on 03/03/2025 at 09:12 AM CDT Sign off status: Pending * Provider: Petra youssef Migration Date: 01/02/2024 Generated for Carolyn domínguez/Summer/Norma on: 03/03/2025 09:12 AM CDT
--- OUTSIDE RECORDS SUMMARY | 2025-03-03 17:53 | XMS_ITS | Clinical Summary ---
Author Organization [facility] Address [facility]ly [facility] [place] [address] Care Team Providers Care In File Operator Name Role Phone Julisa Mcelroy ISAÍAS Primary Care Provider [phone] Allergies No known active allergies Medications methylPREDNISol [...] to complete this topic Insurance Care Teams In File Operator Relationship Specialty Start Date End Date Julisa Mcelroy NP [address] [id number] PCP - General 02/09/23
--- OUTSIDE RECORDS SUMMARY | 2025-03-03 17:53 | XMS_ITS | Continuity of Care Document ---
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 Inactive 2 Condition [facility] ASSESSMENT, POST-DEPLOYMENT, DOCUMENTED ON [id number] Inactive 2 Condition [facility] Encounter for screening for COVID-19 Inactive 2 Condition [facility] Encounter for surveillance of contraceptive pills Active 5 Condition [facility] Allergic rhinitis due to tree pollen Active [facility] Cyst of ovary [facility] Hypothyroidism Active Condition [facility] Anxiety (SCT 40449654) Active Condition [facility] Hypothyroidism (SCT 18685065) Active Condition [facility] Neck Pain (SCT 24935305) Active Condition [facility] Allergic contact dermatitis due to other agents Active Condition [facility] Diagnosis: ICD-10-CM H52.13 Myopia, bilateral Active Diagnosis [facility] Diagnosis: ICD-10-CM L30.9 Dermatitis, unspecified Active Diagnosis [facility] Diagnosis: ICD-10-CM E66.9 Obesity, unspecified Active Diagnosis [facility] Diagnosis: ICD-10-CM M54.2 Cervicalgia Active Diagnosis [facility] Diagnosis: ICD-10-CM N39.9 Disorder of urinary system, unspecified Active Diagnosis [facility] Diagnosis: ICD-10-CM Z71.89 Other specified counseling Active Diagnosis [facility] Diagnosis: ICD-10-CM E03.9 Hypothyroidism, unspecified Active Diagnosis [facility] Medications Combined list of outpatient medications from [...] HCl), 300 MG, TAB ER 24H, ORAL, [employer], 500 ea. BOTTLE Active [id number] 2023 90 Pharmac y Data Transac [...] TABLET, ORAL, MYLAN, 1000 ea. BOTTLE Active [id number] 4 2023 90 Pharmac y Data Transac tion Service Facilit y LEVOTHYROXI NE SODIUM (LEVOTHYROX INE SODIUM), 88MCG, TABLET, ORAL, MYLAN, 1000 ea. BOTTLE Active [id number] 4 2023 30 Pharmac y Data Transac [...] DIRECTED ORAL ACTIVE ROSA MARIA PELAEZ 2023 [facility] tretinoin 0.01% topical gel 1 appl(s), Topical, Daily, # 20 g, 0 total refill(s ), Maintena nce Topica l (on the skin) Ordered 2023 20.0 8320R-9 32D [facility] MEDIC[facility] [place] S[place] 4AF TRIAMCINOLO NE ACETONIDE 0.1% CREAM,TOP APPLY LIGHTLY TO AFFECTED AREA(S) THREE TIMES A DAY NEEDED TOPICA L ACTIVE ROSA MARIA PELAEZ 2023 [facility] N Vitamin D3 50 mcg [...] Known Allergies Drug allergy (disorder) active 8 [place] [address] Tree Pollen Allergy to substance Rhinitis Mild Active Unknown Organization Immunizations Combined list of available immunizations from the Department of Defense and Veterans Affairs facilities. Immunization Series Date Given Administered By Site Reaction Lot Number CVX Code Drug Shoe Planner Status Comments Source INFLUENZA, SPLIT VIRUS, TRIVALENT, PF 1 2023 140 complet ed HISTORICA L INFORMATI ON - FROM OTHER [facility] INFLUENZA, INJECTABLE, QUADRIVALENT, PRESERVATIVE FREE 1 2022 150 complet ed HISTORICA L INFORMATI ON - FROM OTHER [facility] Influenza, injectable, quadrivalent, preservative free 0 2021 [id number] SmithKline (SKB) complet ed Influenza , injectabl e, quadrival ent, preservat charles free DoD rubella virus vaccine 0 2021 06 () Not Given rubella virus vaccine [facility] varicella virus vaccine 0 2021 21 () Not Given varicella virus vaccine [facility] hepatitis A vaccine, adult dosage 0 2021 52 () Not Given hepatitis A vaccine, adult dosage [facility] SARS-COV-2 (COVID-19) vaccine, mRNA, spike protein, LNP, preservative free, 100 mcg or 50 mcg dose 2 2021 [id number] 207 Moderna Hara, Inc. (MOD) complet ed SARS-COV- 2 (COVID-19 ) vaccine, mRNA, spike protein, LNP, preservat charles free, 100 mcg or 50 mcg dose DoD anthrax vaccine 3 2020 [id number] 24 [facility] ([facility]) complet ed anthrax vaccine DoD yellow fever vaccine 1 2020 [id number] 37 Sanofi Pasteur (PMC) complet ed yellow fever vaccine DoD meningococcal polysaccharid e (groups A, C, Y and W-135) diphtheria toxoid conjugate vaccine (MCV4P) 2 2020 [id number] 114 Sanofi Pasteur (PMC) complet ed meningoco ccal polysacch aride (groups A, C, Y and W-135) diphtheri a toxoid conjugate vaccine (MCV4P) DoD influenza, injectable, quadrivalent, preservative free 2020 DERRICK, () Not Given influenza , injectabl e, quadrival ent, preservat charles free DoD Influenza, seasonal, injectable 1 2020 [id number] 141 Transcribed (TRS) complet ed Influenza , seasonal, injectabl e DoD Influenza, injectable, quadrivalent, preservative free 0 2020 150 Seqirus (SEQ) comple t ed Influenza , injectabl e, quadrival ent, preservat charles free DoD anthrax vaccine 2 2020 [id number] 24 [facility] ([facility]) complet ed anthrax vaccine DoD anthrax vaccine 1 2020 [id number] 24 [facility] ([facility]) complet ed anthrax vaccine DoD typhoid Vi capsular polysaccharid e vaccine 1 2020 [id number] 101 Sanofi Pasteur (PMC) complet ed typhoid Vi capsular polysacch aride vaccine DoD SARS-COV-2 (COVID-19) vaccine, vector non-replicati ng, recombinant spike protein-Ad26, preservative free, 0.5 mL 1 2020 212 Kristen (BEST) comple t ed SARS-COV- 2 (COVID-19 ) vaccine, vector non-repli cating, recombina nt spike protein-A d26, preservat charles free, 0.5 mL DoD Influenza, injectable, quadrivalent, preservative free 1 2019 [id number] 868 150 Seqirus (SEQ) complet ed Influenza , injectabl e, quadrival ent, preservat charles free DoD Influenza, injectable, quadrivalent, preservative free 0 2018 [id number] 040 150 Seqirus (SEQ) complet ed Influenza , injectabl e, quadrival ent, preservat charles free DoD Influenza, injectable, quadrivalent, preservative free 1 2017 [id number] 150 Seqirus (SEQ) comple t ed Influenza [...] vaccine DoD influenza, injectable, quadrivalent- pf 2016 [id number] 150 Seqirus complet ed influenza , injectabl e, quadrival ent-pf 05/23/17 Given 0128C-9 2ND MED GRP-JOE RCHILD Influenza, injectable, quadrivalent, preservative free 1 2016 [id number] 150 Seqirus (SEQ) comple t ed Influenza , injectabl e, quadrival ent, preservat charles free DoD influenza, seasonal, injectable-pf 2015 [id number] 140 Unknown complet ed influenza , seasonal, injectabl e-pf 05/25/16 Given 0128C-9 2ND MED GRP-JOE RCHILD Influenza, seasonal, injectable, preservative free 1 2015 [id number] 140 Unknown (UNK) comple t ed Influenza [...] vaccine, adult dosage 2 2014 [id number] 43 [employer] Labs[employer]. Onge (SKB) complet ed hepatitis B vaccine, adult dosage DoD influenza, seasonal, injectable-pf 2014 [id number] 140 CSL Behring complet ed influenza , seasonal, injectabl e-pf 05/01/15 Given 0128C-9 2ND MED GRP-JOE RCHILD Influenza, seasonal, injectable, preservative free 1 2014 [id number] 140 CSL [employer] (CSL) complet ed Influenza , seasonal, injectabl e, preservat charles free DoD adenovirus vaccine, live 2014 [id number] 2 143 Teva Pharmaceutica ls complet ed adenoviru s vaccine, live 03/28/15 Given 0128C-9 2ND MED GRP-JOE RCHILD tetanus, diphtheria, acellular pertu is 2014 [id number] 115 sanofi pasteur complet ed tetanus, diphtheri a, acellular pertussis 03/28/15 Given 0128C-9 2ND MED GRP-JOE RCHILD meningococcal A,C,Y,W-135 (MCV4P) 2014 [id number] 114 sanofi pasteur complet ed meningoco ccal A,C,Y,W-1 35 (MCV4P) 03/28/15 Given 0128C-9 2ND MED GRP-JOE RCHILD hepatitis B adult vaccine 2014 [id number] 43 GlaxoSmithKli ne complet ed hepatitis B adult vaccine 03/28/15 Given 0128C-9 2ND MED GRP-JOE RCHILD poliovirus vaccine, inactivated 2014 [id number] 10 sanofi pasteur complet ed polioviru s vaccine, inactivat ed 03/28/15 Given 0128C-9 2ND MED GRP-JOE RCHILD measles, mumps and rubella virus vaccine 1 2014 UNK 03 Unknown (UNK) Not Given measles, mumps and rubella virus vaccine DoD poliovirus vaccine, inactivated 1 2014 [id number] 10 Sanofi Pasteur ([facility]) complet ed polioviru s vaccine, inactivat ed [...] diphtheria toxoid conjugate vaccine (MCV4P) 1 2014 [id number] 114 Sanofi Pasteur ([facility]) complet ed meningoco ccal polysacch aride (groups A, C, Y and W-135) diphtheri a toxoid conjugate vaccine (MCV4P) DoD tetanus toxoid, reduced diphtheria toxoid, and acellular pertu is vaccine, adsorbed 1 2014 [id number] 115 Sanofi Pasteur ([facility]) complet ed tetanus toxoid, reduced diphtheri a toxoid, and acellular pertussis vaccine, adsorbed DoD Adenovirus, type 4 and type 7, live, oral 1 2014 [id number] 2 143 [facility] (BRR) complet ed Adenoviru s, type 4 [...] Sep 23, 2023 01:30 PM Reporting Lab: [facility] [address] [place] [id number] Performing Lab: [facility] [address] [place] [address] [facility] Infectiou s Disease HIV-1/O/2 Non-Reac tive 1 [...] Prevention' s HIV diagnostic algorithm. Refer to [facility] Lab Guide for additional information : [email or web address] x Testing performed [...] Value Date Comments Source Mean Arterial Pressure, Cuff (Calc) 91 mm[Hg] 04/03/2018 01:25:00 8320R-932D [facility] S[facility] 4AF Peripheral Pulse Rate 91 bpm 04/03/2018 01:25:00 8320R-932D [facility] SQ 4AF Respiratory [...] 18:34:00 No Facility Access Mean Arterial Pressure, Cuff (Calc) 91 mm[Hg] 04/01/2018 18:34:00 No Facility Access Systolic Blood Pressure 118 mm[Hg] 04/01/20 18 18:34:00 No Facility Access Diastolic Blood Pressure 78 mm[Hg] 018 18:34:00 No Facility Access Encounters Combined list of: 1) Encounters from Department of Veterans Affairs facilities going backup to the last 18 months, not all VA inpatient encounters are included; 2) Encounters from the Department of MotorExchange facilities going backup to 280 months. Location Location Details Encounter Type Encounter Number Reason For Visit Attending Provider ADM Date DC Date Status Disposition Source [facility] OUTPATIENT [id number] Notes Entered by: RONAL MELISSA 21 Mar 2015 1340 ------- ------- ------- ------- -- BLOOD MARY GARCIA S 03/21 Released w/o Limitations [facility]) STEPHEN Elkins(Ramo g Conservat ion) OUTPATIENT [id number] Notes Entered by: Ranjeet NORTON 23 Mar 2015 1103 ------- ------- ------- ------- -- [address] [place], [place] [address]T NEGIN NORTON 03/23 Released w/o Limitations [facility] Correa(Hear ing Conserv ation) [facility] Elkins(OST Optometry ) OUTPATIENT [id number] Notes Entered by: ME EVELYN MA 23 Mar 2015 1140 ------- ------- ------- ------- -- OST IET ZELALEM BECKFORD 03/23 Released w/o Limitations [facility] [place] [place] [place] [place] OUTPATIENT [id number] Notes Entered by: EVANGELINA MONTOYA 28 Mar 2015 0800 ------- ------- ------- ------- -- SAÚL ZAVALA 03/28 Released w/o Limitations [facility] [place] [place] [place] [place](AMH S02B Leak) OUTPATIENT [id number] Notes Entered by: IGOR CASE 11 May 2015 0655 ------- ------- ------- ------- -- (N P)-[facility] C SORE THROAT, COUGH,S INUSES MATT CODY 05/11 Released w/o Limitations [facility] [place] [place] S02B Leak) [facility] [place] [place] S02B Leak) OUTPATIENT [id number] Notes Entered by: LEWIS JARVIS 15 May 2015 1038 ------- ------- ------- ------- -- C 08/07 [facility] ALLERGI ES MATT CODY 05/15 Released w/o Limitations [facility] [place] [place]H S02B Leak) [facility] [place] [place]) OUTPATIENT [id number] Notes Entered by: JOHN DEL RIO 18 May 2015 1256 ------- ------- ------- ------- -- Cont/SAÚL Cedeno 05/18 Released w/o Limitations [facility] [place] [place]) [place] [address](AMH S01B Juan J) OUTPATIENT [id number] Notes Entered by: Jennifer KELLOGG 05 Jun 2015 0641 ------- ------- ------- ------- -- ftscall -overfl ow MARTINEZALEKSANDAR 06/05 Released w/o Limitations [facility] [place] [address](A MH S01B Juan J ) [facility] [place] [address](AMH S01B Juan J) OUTPATIENT [id number] ftscalkumar MARTINEZALEKSANDAR 06/26 [facility]ased w/[facility] Limitations [facility] [place] [address](A MH S01B Juan J ) [place] [address](Opt ometry [facility]) OUTPATIENT [id number] Notes Entered by: MARIA A CALVO 20 Aug 2015 0619 ------- ------- ------- ------- -- REORDER RAMEZ CARRINGTON 08/20 Released w/o Limitations [facility] [place] [address](O ptometr y [facility]) [place] [address](AMH S01B Juan J) OUTPATIENT [id number] COOKIEPREETHI AHN Kumar 08/20 Released w/o Limitations [facility] [place] [address](A MH S01B Juan J ) [address] [place] [address] Group Rashawn LARA [place]Aud iology Procedure s) OUTPATIENT [id number] Notes Entered by: Hamlet CLEMONS 15 Dec 2017 0851 ------- ------- ------- ------- -- SANTIAGO MARISSA ROBERSON 12/15 Released w/o Limitations [facility] Rashawn LARA [place]A udiolog y Procedu res) [address] [place] [address] Group Rashawn LARA [facility])(Bas e Operation al Medicine Clin) OUTPATIENT [id number] YAKOV MCPHERSON 12/15 Released w/o Limitations [address] [place] [address] Group [facility])(B ase Operati onal Medicin e Clin) [address] [place] [address])(Opt ometry) OUTPATIENT [id number] Notes Entered by: Kumar BOX 15 Dec 2017 1115 ------- ------- ------- ------- -- [facility] w/i PRABHJOT NAIR 12/15 Released w/o Limitations [address] [place] [address])(O ptometr y) [address] [place] [address])([facility] Flight Medicine Tm) TELE CONSULT [id number] Notes Entered by: DEVIN VUONG RET 19 Apr 2018 1442 ------- ------- ------- ------- -- Appt/No n Enrolle e/ LEATHA Solis 04/19 Referred for Appointment [address] [place] [address])(S [facility] Flight Medicin e Tm) [address] [place] [address])([facility] ) OUTPATIENT [id number] Headace s pt will come in @0820 YAKOV MCPHERSON 04/21 Released w/o Limitations [address] [place] [address])(S cott Flight Medicin e Tm) [address] [place] [address])([facility] Medicine) OUTPATIENT [id number] Notes Entered by: GALA WHATLEY 04 Jun 2018 1435 ------- ------- ------- ------- -- Weight Loss GALA WHATLEY 06/04 Released w/o Limitations [address] [place] [address])(N utritio nal Medicin e) [address] [place] [address])([facility]) OUTPATIENT [id number] Notes Entered by: GALA WHATLEY 14 Jun 2018 0857 ------- ------- ------- ------- -- Follow- up Weight Loss GALA HWATLEY 06/14 Released w/o Limitations [facility] Rashawn [facility])(N utritio nal Medicin e) [facility] Rashawn [facility])(Deo tt Flight Medicine Tm) OUTPATIENT [id number] Notes Entered by: MARVIN MCCLURE 25 Aug 2018 0751 ------- ------- ------- ------- -- er F/U rhinosi nusitis REBEKA BRISCOE 08/25 Released w/o Limitations [facility] Rashawn [facility])(S cott Flight Medicin e Tm) [address] [place] [address])(Aud iology Procedure s) OUTPATIENT [id number] annual WICHO TSANG 07/18 Released w/o Limitations [address] [place] [address] Group Rashawn [facility])(A udiolog y Procedu res) [address] [place] [address])(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 ecology) TELE CONSULT [id number] Notes Entered by: BRANDI DEL REAL 10 Aug 2019 1917 ------- ------- ------- ------- -- results MOLLY NOLEN 08/11 Released to [facility] [address] [place] [address])(G ynecojem gy) [address] [place] [address] Rashawn [facility])(Deo tt Flight Medicine Tm) OUTPATIENT [id number] Notes Entered by: JOANNA DURBIN 18 Aug 2019 0743 ------- ------- ------- ------- -- RTFS GEORGE FAY 08/18 Released w/o Limitations [address] [place] [address])(S cott Flight Medicin e Tm) [address] [place] [address])([facility] ) TELE CONSULT [id number] Notes Entered by: KRISTY FLYNN 14 Sep 2019 1508 ------- ------- ------- ------- -- non enrolle e on orders/ SX-hack ing cough 9782 LEATHA Emerson 09/14 Advice Assessment [address] [place] [address])(S cott Flight Medicin e Tm) [address] [place] [address])([facility] ) OUTPATIENT [id number] Notes Entered by: JOANNA DURBIN 15 Sep 2019 1302 ------- ------- ------- ------- -- cold symptom s DANNI JONES 09/15 Released w/o Limitations [address] [place] [address])(S cott Flight Medicin e Tm) [address] [place] [address])(Bas e Operation al Medicine Clin) OUTPATIENT [id number] rtfs TASHI RODGERS 09/20 Released w/o Limitations [address] [place] [address])(B ase Operati onal Medicin e Clin) [address] [place] [address])(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 Food Assistant 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 ecology) TELE CONSULT [id number] Notes Entered by: ANDRADE COLLINS 07 Oct 2019 0808 ------- ------- ------- ------- -- medicat ion request CAROLYN DEL REAL 10/[address] [place] [address])(Bhavna muñoz gy) [address] [place] [address])([facility] Flight Medicine Tm) TELE CONSULT [id number] Notes Entered by: DUDLEY DWYER 14 Nov 2019 1608 ------- ------- ------- ------- -- HAIMS/H uang/km BHARATH Garcia 11/13 Other Not Elsewhere Classified [address] [place] [address])(S cott Flight Medicin e Tm) [address] [place] [address])(Opt ometry) OUTPATIENT [id number] routine acclp SELENA FLORES 11/17 Released w/o Limitations [address] [place] [address])(O ptometr y) [address] [place] [address])([facility]) TELE CONSULT [id number] Notes Entered by: JACQUELINE STEPHENS 11 Apr 2020 1338 ------- ------- ------- ------- -- Virtual RTFS JACQUELINE STEPHENS 04/[address] [place] [address])([facility]) [address] [place] [address])(War rior Op Med Cln Tm A Ad) TELE CONSULT [id number] Notes Entered by: GAUDENCIO SOLORZANO 19 Jun 2020 1047 ------- ------- ------- ------- -- covid testing COLLIN CAMPOS 06/19 Referred for Appointment [address] [place] [address])(W arrior Op Med Cln Tm A Ad) [address] [place] [address])(Santo demic Virus) OUTPATIENT [id number] Covid testing LALI SOLORZANO 06/20 Released w/o Limitations [address] [place] [address])(P andemic Virus) [address] [place] [address])(War rior Op Med Cln Tm A Ad) TELE CONSULT [id number] Notes Entered by: GIUSEPPE LOPEZ 22 Jun 2020 0953 ------- ------- ------- ------- -- NEG Covid Results BRYAN LOPEZ 06/22 Released to Self Care [address] [place] [address])(W arrior Op Med Cln Tm A Ad) [address] [place] [address])(War rior Op Med Cln Tm A Ad) TELE CONSULT [id number] Notes Entered by: SHARI BOLDEN 25 Jun 2020 0736 ------- ------- ------- ------- -- Neg COVID results - PUJA ZAMORA 06/25 Released to Self Care [address] [place] [address])(W arrior Op Med Cln Tm A Ad) [address] [place] [address])([facility] [address] [facility]) OUTPATIENT [id number] Notes Entered by: LEIGHTON SANCHEZ 26 Jul 2020 1518 ------- ------- ------- ------- -- RTFS JACQUELINE STEPHENS 07/26 Released w/o Limitations [address] [place] [address])( Primary Care Clinic) [address] [place] [address])([facility] [address] [facility]) TELE CONSULT [id number] Notes Entered by: JACQUELINE STEPHENS 21 Dec 2020 1032 ------- ------- ------- ------- -- Ground testing JACQUELINE STEPHENS 12/[address] [place] [address])( [facility]) [address] [place] [address])([facility] [address] [facility]) TELE CONSULT [id number] Notes Entered by: CIARA GARCIA 17 Jan 2021 1534 ------- ------- ------- ------- -- Ground testing RONI GARCIA 01/17 Other Not Elsewhere Classified [address] [place] [address])([facility]) [address] [place] [address] Rashawn LARA [facility]Opt ometry) OUTPATIENT [id number] Routine Eye Exam SELENA FLORES 01/23 Released w/o Limitations [address] [place] [address] Rashawn [facility]O ptometr y) [address] [place] [address] Rashawn [facility])([facility] ) TELE CONSULT [id number] Notes Entered by: MARYAM BURGOS 24 Jan 2021 0907 ------- ------- ------- ------- -- RASHAWN ENNIS 01/[address] [place] [address] Rashawn [facility])(S [employer] Flight Medicin e Tm) [address] [place] [address] Rashawn [facility])([facility] ) OUTPATIENT [id number] Notes Entered by: JACQUELINE STEPHENS 24 Jan 2021 1448 ------- ------- ------- ------- -- JACQUELINE DE LUNA 01/24 Released w/o Limitations [address] [place] [address] Rashawn [facility])(S [employer] Flight Medicin e Tm) [address] [place] [address] Rashawn [facility])(Opt ometry) OUTPATIENT [id number] Notes Entered by: ANDREA TERAN 25 Jan 2021 1201 ------- ------- ------- ------- -- Contact lens follow- up/adju stment SELENA FLORES 01/25 Released w/o Limitations [address] [place] [address] Rashawn [facility]O ptometr y) [address] [place] [address] Rashawn [facility])([facility]) TELE CONSULT [id number] Notes Entered by: JACQUELINE STEPHENS 04 Feb 2021 0948 ------- ------- ------- ------- -- JACQUELINE Carey 02/[address] [place] [address] Rashawn [facility])([facility]) [address] [place] [address] Rashwan [facility])(Santo demic Virus) OUTPATIENT [id number] symptom atic/MO L/932AE /PCR JACQUELINE STEPHENS 02/04 Released w/o Limitations [address] [place] [address])(P andemic Virus) [address] [place] [address])([facility] Medicine Tm) TELE CONSULT [id number] Notes Entered by: RICH RANDOLPH 04 Feb 2021 1632 ------- ------- ------- ------- -- ooc GEORGE FAY 02/[address] [place] [address] Rashawn [facility])(S cott Flight Medicin e Tm) [address] [place] [address])([facility] Tm) TELE CONSULT [id number] Notes Entered by: Milton FAY 08 Mar 2021 1826 ------- ------- ------- ------- -- PATITO GEORGE FAY 03/[address] [place] [address] [facility])(S cott Flight Medicin e Tm) [address] [place] [address])([facility] TELE CONSULT [id number] Notes Entered by: Milton FAY 11 Mar 2021 0812 ------- ------- ------- ------- -- ER visit GEORGE FAY 03/[address] [place] [address] [facility])(S cott Flight Medicin e Tm) [address] [place] [address] [facility])([facility]) OUTPATIENT [id number] RTFS ER GEORGE FAY 03/14 Released w/o Limitations [address] [place] [address] [facility])(S cott Flight Medicin e Tm) [address] [place] [address] [facility])([facility]) TELE CONSULT [id number] 3 Notes Entered by: JACQUELINE STEPHENS 18 Mar 2021 0914 ------- ------- ------- ------- -- Ground testing SAPNAPRADIP JACQUELINE L 03/[address] [place] [address])([facility]) [address] [place] [address])([facility]) TELE CONSULT [id number] Notes Entered by: JACQUELINE STEPHENS 08 Apr 2021 1419 ------- ------- ------- ------- -- Ground testing complet ion JACQUELINE STEPHENS 04/[address] [place] [address] [facility]awn Cherelle [facility]) [facility] Medical [facility](Santo demic Virus) OUTPATIENT [id number] Notes Entered by: MU WARREN 16 Apr 2021 0755 ------- ------- ------- ------- -- JACQUIID MU FLOOD 04/16 Released w/o Limitations [facility] Medical [facility](P andemic Virus) Theater Facility OUTPATIENT [id number] 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 07/25 Sick at Home/Quarter s Theater Facilit y Theater Facility OUTPATIENT [id number] 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 08/26 Released w/o Limitations Theater Facilit y [address] [place] [address])(Sco tt Flight Medicine Tm) TELE CONSULT [id number] Notes Entered by: KRISTY FLYNN 25 Dec 2021 0841 ------- ------- ------- ------- -- doreen narayanan /adina /[phone] JOI Tellez 12/25 Other Not Elsewhere Classified [address] [place] [address])(S cott Flight Medicin e Tm) [address] [place] [address])(Opt ometry) OUTPATIENT [id number] Notes Entered by: LACEY VIDALES 14 Mar 2022 1444 ------- ------- ------- ------- -- Glasses Ordered LACEY VIDALES 03/14 Released w/o Limitations [facility] [employer] ([facility]O ptometr y) [facility] [employer] ([facility])(Fast Food Assistant 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 ecology) OUTPATIENT [id number] E CAROLYN DEL REAL 03/19 Released w/o Limitations [address] [place] [address] Group [employer] B ([facility]G ynecolo gy) [address] [place] [address] [employer] B [facility])(Fast Food Assistant 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 ecology) TELE CONSULT [id number] 2 Notes Entered by: BRANDI DEL REAL 21 Mar 2022 1230 ------- ------- ------- ------- -- results GERSON FRANCHESCA Pollack 03/21 Released to Self Care [address] [place] [address] Group [employer] [facility] ([facility]G ynecolo gy) [address] [place] [address] [employer] B [facility])(Fast Food Assistant 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 ecology) TELE CONSULT [id number] 1 Notes Entered by: BRANDI DEL REAL 31 Mar 2022 0919 ------- ------- ------- ------- -- results PERLITA PECK 03/[address] [place] [address] Group [employer] B ([facility]G ynecolo gy) [address] [place] [address] [employer]awn HASSANB [facility])(Nut ritional Medicine) OUTPATIENT [id number] Notes Entered by: GALA WHATLEY 01 Apr 2022 1338 ------- ------- ------- ------- -- GLB #2 GALA WHATLEY 04/01 Released w/o Limitations [facility] [employer] ([facility])(N utritio nal Medicin e) [facility] [employer] B ([facility]) OUTPATIENT [id number] Notes Entered by: CHRISTINA KING 01 Apr 2022 1508 ------- ------- ------- ------- -- Weight loss GIL KING 04/01 Released w/o Limitations [employer] [facility] ([facility]N utritio nal Medicin e) [employer] [facility])(Sco tt Flight Medicine Tm) TELE CONSULT [id number] Notes Entered by: Rohan HERRERA 30 Apr 2022 1407 ------- ------- ------- ------- -- Appt Request /Adina / JOI CHRISTIE 04/30 Referred for Appointment [employer] [facility] ([facility]S cott Flight Medicin e Tm) [employer] [facility])(Deo tt Flight Medicine Tm) OUTPATIENT [id number] [phone] PATSY NATION 05/16 Released w/o Limitations [employer] [facility] ([facility]S cott Flight Medicin e Tm) [employer]([facility]) OUTPATIENT [id number] POSSIBL E LISA RAVI 12/17 Released with Work/Duty Limitations [employer](F light Medicin e) [employer]([facility]) TELE CONSULT [id number] Notes Entered by: MATT SANDHU 17 Dec 2022 1047 ------- ------- ------- ------- -- Labs result relay HEATHER ZAMORA 12/17 Released to Self Care [employer](F light Medicin e) [facility] Outpatient Encounter [id number] NICHOLE VIDALES 09/21 [facility] OFFICE O/P NEW MOD 45 MIN [id number] Diagnos is: ICD-10- CM E03.9 Hypothy roidism , unspeci RYDER Pagan 09/22 [facility] Outpatient Encounter [id number] FABRICIO INGRAM HER C 09/24 [facility] [id number] Diagnos is: ICD-10- CM 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 WILFRED Fulton A 09/27 [facility] Outpatient Encounter [id number] 09/29 [facility] Outpatient Encounter [id number] FABRICIO INGRAM HER C 09/30 [facility] Outpatient Encounter [id number] 09/30 [facility] Outpatient Encounter [id number] YUMIKO ALBRECHT M 09/30 [facility] Outpatient Encounter [id number] 09/30 [facility] Outpatient Encounter [id number] Diagnos is: ICD-10- CM N39.9 Disorde r of urinary system, unspeci fied Aayush PELAEZ ONSTANCE D 10/01 [facility] Outpatient Encounter [id number] 10/01 [facility] Outpatient Encounter [id number] 10/04 [facility] Outpatient Encounter [id number] FABRICIO INGRAM C 10/06 [facility] SELF CARE MNGMENT TRAINING [id number] Diagnos is: ICD-10- CM M54.2 Cervica lgia DONS,AKBAR MIN J 10/29 [facility] Outpatient Encounter [id number] 11/08 [facility] MANUAL THERAPY 1/ REGIONS [id number] Diagnos is: ICD-10- CM M54.2 Cervica lgia DONS,AKBAR MIN J 11/15 [facility] Outpatient Encounter [id number] 11/22 [facility] OFFICE O/P NEW LOW 30 MIN [id number] Diagnos is: ICD-10- CM H52.13 Myopia, bilater al CLAY,MY- LAVON THI 11/26 [facility] [place] [id number] Diagnos is: ICD-10- CM E66.9 Obesity , unspeci fied MIKAYLASHANNAN C 12/03 [facility] Outpatient Encounter [id number] 02/15 [facility] 8320R-932 D AEROSPACE MEDICINE SQ 4AF Care Not Rendered [id number] Hypothy roidism , unspeci fied,Ge neralineftaly ed anxiety disorde r,Aller gic rhiniti s due to pollen, Encount er for issue of other medical certifi johnathan 03/26 Discharge Disposition: Home or Self Care 8320R-9 32D AEROSPA [place] MEDICIN E SQ 4AF [facility] Outpatient Encounter [id number] 04/[address] [facility] Outpatient Encounter [id number] 05/06 [facility] Outpatient Encounter [id number] 05/06 [facility] OFFICE O/P EST SF 10 MIN [id number] Diagnos is: ICD-10- CM L30.9 Dermati tis, unspeci Aayush Newman ONSTANCE D 05/06 [facility] Outpatient Encounter [id number] 05/06 [facility] Outpatient Encounter [id number] 05/07 [facility] Outpatient Encounter [id number] 06/18 [facility] INTRM OPH EXAM EST PATIENT [id number] Diagnos is: ICD-10- CM H52.13 Myopia, bilPHILIPPE Wong THI 10/21 [facility] Outpatient Encounter [id number] 12/23 [facility] Procedures Combined list of: 1) Procedures from Department of Veterans Affairs facilities going back up to thelast 18 months, not all VA non-surgical procedures are included; 2) All procedures from the Department of Defense facilities. Procedure Procedure Type Code Date Perfomer Comments Sourc e No data available for this section 0128C-92N D [facility] HILD INFECTIOUS AGENT DETECTION BY NUCLEIC ACID (DNA OR RNA); SEVERE ACUTE RESPIRATORY SYNDROME CORONAVIRUS 2 (SARS-COV-2) (CORONAVIRUS DISEASE [COVID-19]), AMPLIFIED PROBE TECHNIQUE [facility] FITTING OF SPECTACLES, EXCEPT FOR APHAKIA; MONOFOCAL DoD HEPATITIS B VACCINE (HEPB), ADULT DOSAGE, 3 DOSE SCHEDULE, FOR INTRAMUSCULAR USE DoD THERAPEUTIC, PROPHYLACTIC, OR DIAGNOSTIC INJECTION (SPECIFY SUBSTANCE OR DRUG); SUBCUTANEOUS OR INTRAMUSCULAR [facility] FITTING OF SPECTACLES, EXCEPT FOR APHAKIA; MONOFOCAL DoD PURE TONE AUDIOMETRY (THRESHOLD), AUTOMATED; AIR ONLY DoD HANDLING AND/OR CONVEYANCE OF SPECIMEN FOR TRANSFER FROM THE OFFICE TO A LABORATORY DoD MEDICAL NUTRITION THERAPY; INITIAL ASSESSMENT AND INTERVENTION, INDIVIDUAL, [id number] WITH THE PATIENT, EACH 15 MINUTES DoD [...] MEDICAL NUTRITION THERAPY; RE-ASSESSMENT AND INTERVENTION, INDIVIDUAL, [id number] WITH THE PATIENT, EACH 15 MINUTES [facility] MEDICAL NUTRITION THERAPY; INITIAL ASSESSMENT AND INTERVENTION, INDIVIDUAL, [id number] WITH THE PATIENT, EACH 15 MINUTES [facility] DETERMINATION OF REFRACTIVE STATE [facility] ELECTROCARDIOGRAM, ROUTINE ECG WITH AT LEAST 12 LEADS; WITH INTERPRETATION AND REPORT [facility] PURE TONE AUDIOMETRY (THRESHOLD), AUTOMATED; AIR ONLY [facility] Medical Nutrition Therapy Re-a e ment, Intervention Medical Nutrition Therapy Re-assessment, Intervention 51639 GALA WHATLEY S [facility] Medical Nutrition Therapy Initial A e ment, Intervention Medical Nutrition Therapy Initial Assessment, Intervention 81062 PHYLICIA, GALA S [facility] Determination Of Refractive State Determination Of Refractive State 10939 PRABHJOT NAIR [facility] Ophthalmological New Patient Start Comprehensive Care Ophthalmological New Patient Start Comprehensive Care 87267 PRABHJOT NAIR [facility] Electrocardiogram Electrocardiogram 27421 12/15 YAKOV MCPHERSON Tonometry Tonometry 06811 YAKOV MCPHERSON [facility] Extensive Color Vision Testing Extensive Color Vision Testing 46615 YAKOV MCPHERSON [facility] Visual Goldman Test Limited Examination Visual Goldman Test Limited Examination 14853 YAKOV MCPHERSON [facility] Screening Test Of Visual Acuity, Quantitative, Bilateral Screening Test Of Visual Acuity, Quantitative, Bilateral 62130 YAKOV MCPHERSON [facility] Threshold Audiogram (Pure Tone) Automated Threshold Audiogram (Pure Tone) Automated 0208T MARISSA ROSS [facility] Spectacles Services Fitting Monofocals (Not For Aphakia) [employer] Fitting Monofocals (Not For Aphakia) 12040 016 RAMEZ AGUIRRE [facility] Immunization Administration One Vaccine Immunization Administration One Vaccine [address] Supervised Injection Intramuscular Antibiotic Supervised Injection Intramuscular Antibiotic 68747 SAÚL CAMERON Hepatitis B Vaccine (Active); 20 Years and Above Hepatitis B Vaccine (Active); 20 Years and Above 20476 015 [facility], [facility] Immunization Admin By Intranasal / Oral Route One Vaccine Immunization Admin By Intranasal / Oral Route One Vaccine 49098 015 [facility], [facility] Immunization Admin Intranasal / Oral Each Additional Vaccine Immunization Admin Intranasal / Oral Each Additional Vaccine 28148 015 [facility], [facility] Immunization Administration Each Additional Vaccine Immunization Administration Each Additional Vaccine 35892 015 [facility], [facility] Vaccines Adenovirus Type 4 Live, For Oral Use Vaccines Adenovirus Type 4 Live, For Oral Use 10546 [facility], [facility] Vaccines Adenovirus Type 7 Live, For Oral Use Vaccines Adenovirus Type 7 Live, For Oral Use 41387 015 [facility], [facility] Tdap Vaccine Tdap Vaccine 72029 [facility], [facility] Vaccines Viral Polio, Inactivated (Salk) Vaccines Viral Polio, Inactivated (Salk) 07277 [facility], [facility] Ear mold/insert, not disposable, any type NEGIN NORTON SAdelso [facility] Patient education, not otherwise cla ified, non-physician provider, group, per se ion NEGIN NORTON Threshold Audiogram (Pure Tone) Automated Threshold Audiogram (Pure Tone) Automated 0208T NEGIN NORTON Adelso Cortez [employer] [facility] Fitting Monofocals (Not For Aphakia) [employer] Fitting Monofocals (Not For Aphakia) 84982 015 JENNIFER MA Ophthalmological New Patient Start Comprehensive Care Ophthalmological New Patient Start Comprehensive Care 07271 FRANCESCA JENNIFERREYNALDO [place] Determination Of Refractive State Determination Of Refractive State 45071 FRANCESCA JENNIFER Deigo Miller-Supervised Specimen Handling / Transfer: Office To Lab -Supervised Specimen Handling / Transfer: Office To Lab 15919 MARY GARCIA Venipuncture Venipuncture 31560 RADHAMARY Jenny [facility] Threshold Audiogram (Pure Tone) Automated Threshold Audiogram (Pure Tone) Automated 0208T WICHO TSANG [facility] Ophthalmological Prior Patient Start Comprehensive Care Ophthalmological Prior Patient Start Comprehensive Care 85643 SELENA FLORES [facility] Determination Of Refractive State Determination Of Refractive State 14084 SELENA FLORES [facility] Prescription & Fitting Bilateral Corneal Lenses (Not Aphakia Prescription & Fitting Bilateral Corneal Lenses (Not Aphakia 63100 SELENA FLORES [facility] Ophthalmological Prior Patient Start Intermediate Level Care Ophthalmological Prior Patient Start Intermediate Level Care 08381 SELENA FLORES [facility] Spectacles Services Fitting Monofocals (Not For Aphakia) [employer] [facility] Fitting Monofocals (Not For Aphakia) 36350 LACEY VIDALES [facility] Screening papanicolaou smear; obtaining, preparing and conveyance of cervical or vaginal smear to laboratory CAROLYN DEL REAL [facility] Medical Nutrition Therapy Group (2 or More Individual(s)) Medical Nutrition Therapy Group (2 or More Individual(s)) 32437 GALA WHATLEY [facility] Medical Nutrition Therapy Initial A e ment, Intervention Medical Nutrition Therapy Initial Assessment, Intervention 41126 GIL KING [facility] Social History Combined list of available smoking, tobacco, and other social history from Department of Defense and Veterans Affairs facilities. Social History Type Response Date Comment Sourc e Tobacco smoking status [facility] VA-TOBACCO NEVER USED 09/22/2023 [facility] Sex Representation Female (finding) 03/22/2018 Unknown Organization Sexual Orientation 0128C- 92ND [facility] Gender identity 0128C-92N D [facility] This section is an empty social history [...] a 3 0 Years o ld F emale p rescalvin f or A eromedical Waiver appointment. MSD [...] with other providers (both today and at [facility]), documentation of this encounter in GILMAR/AIMWTS, and/or troubleshooting S [place] system errors. 2. 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 Repeat TSH pending, as last draw was only 6 days after dose adjustment; SM to obtain through traveling electrician or PCP and submit records -PE WNL, [...] outside records received and reviewed by provider -STUART highly motivated to RTFS as an AE [...] to AMS for clarification AMD: Jacqueline Stephens, PERLITE GRINDER, LIVESTOCK SALES REPRESENTATIVE-C . [place], [place], [facility] Aeromedical Nurse Practitioner [address] [employer], [employer] Extracted from:Title: Immersion Foot Initial Author: CASANDRA [...] in 24 hours then follow up with [facility] for f urther e valuation. 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 H last Down 2992 issues in field. N o deviations from IDMT protocols. Ordered: Office Visit Level 1 New [id number] Addendum by JIM DE ANDA on April 05, 2018 10:14:11 PDT IDMT documentation above has been reviewed. Petra winkler was not present at time of the evaluation and therefore did not perform patient interview or examination. Counter-signature indicates IDMT treatment was reviewed separately for appropriateness and encounter feedback was discussed with IDMT and documented on IDMT Form 4336 IA THAIGO 44-103 and the [facility] IDOR Medical and Dental Treatment Protocols. 03/03/2025 [id number] AEROSPACE MEDICINE 4AF Assessment and Plan Extracted from:Title : Aeromedical Waiver Exam Author: JACQUELINE STEPHENS Date: 03/26/24 1. E ncounter for issue of other medical certificate Aeromedical Waiver for: Hypothyroidism and Gerneralized Anxiety disorder Aeromedical Waiver type: Initial Naya A crystal i s a 3 0 Years o ld F emale p resents f or A eromedical Waiver appointment. MSD and [facility]WG d iscussed and reviewed with patient. History obtained from patient in conjunction with chart review including GILMAR, NIKKI, S ubmitted records a nd ASIMS. Pertinent [...] [facility] documentation of this encounter in GILMAR/AIMWTS, and/or troubleshooting S Gilmar system errors. 2. 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 Repeat TSH pending, as last draw was only 6 days after dose adjustment; SM to obtain through traveling electrician or PCP and submit records -PE WNL, [...] to AMS for clarification AMD: Jacqueline Stephens, SARAHI, LIVESTOCK SALES REPRESENTATIVE-C . [place], [place], [facility] Aeromedical Nurse Practitioner [address] [employer] BLISS Extracted [...] in 24 hours then follow up with [facility] for f urther e valuation. 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 H last Down 2992 issues in field. N o deviations from IDMT protocols. Ordered: Office Visit Level 1 New [id number] Addendum by JIM DE ANDA on April 05, 2018 10:14:11 PDT IDMT documentation above has been reviewed. Petra winkler was not present at time of the evaluation and therefore did not perform patient interview or examination. Counter-signature indicates IDMT treatment was reviewed separately for appropriateness and encounter feedback was discussed with IDMT and documented on IDMT Form 4336 IAW THIAGO 44-103 and the [facility] IDMT Medical and Dental Treatment Protocols. 03/03/2025 0128C-[id number] [facility] Functional Status Combined list of recent functional and cognitive assessments recorded at Department of Defense and Veterans Affairs (VA).VA Functional [place] Measurement (FIM) Scale: 1 = Total Assistance (Subject = 0% +), 2 = Maximal Assistance (Subject = 25% +), 3 = Moderate Assistance (Subject = 50% +), 4 = Minimal Assistance (Subject = 75% +), 5 = Supervision, 6 = Modified [place] (Device), 7 = Complete [place] (Timely, Safely). Assessment Date/Time Source Assessment Type Assessment Skill Assessment Score Assessment Details No data available for this section
--- OUTSIDE RECORDS SUMMARY | 2025-03-03 17:53 | XMS_ITS | Continuity of Care Document ---
Author Organization [facility] Address [address] [place] [address] Phone Care Team Providers Care Dining Car Hop Name Role Phone Miguelito PT,MPT,ATC, Mati Unavailable Unavai lable Procedures Procedure Date Therapeutic Activities Neuromuscular Re-Ed Therapeutic Activities Therapeutic Activities Neuromuscular Re-Ed Therapeutic Activities Therapeutic Activities Therapeutic Activities PT Evaluation Moderate Complexity Therapeutic Activities Advance Directives Directive Yes / No Effective Date File Name No Information Encounters Encounter Description Practice Location Reason(s) For Visit Diagnoses Date Provider Providers Copied on Encounter [facility] [facility], [place], [place], [address], tel:[phone] [place] No Information 4 Miguelito Thorne , [place], [place]. [facility], [place], [place], [address], tel:[phone] [place] No Information 4 Julian Hanson. . [facility], [place], [place], [address], tel:[phone] [place] No Information 4 Mamta Velazco. . [facility], [place], [place], [address], tel:[phone] [place] No Information 4 Julian Hanson. . [facility], [place], [place], [address], tel:[phone] [place] No Information 4 Julian Hanson. . [facility], [place], [place], [address], tel:[phone] [place] No Information 4 Mamta Velazco. . [facility], [place], [place], [address], tel:[phone] [place] No Information 4 Mamta Velazco. . [facility], [place], [place], [address], tel:[phone] [place] No Information 3 Mamta Velazco. . Family History Family Member Type Diagnosis Age At Onset No Information Payers Payer name Insurance type Covered libertarian ID Authoriza tion(s) No Information Social History Type Description Quantity Date Captured Comments Sex Female Smoking Status No Information Chief Complaint And Reason For Visit No Information Reason For Referral Reason For Referral No Information History Of Present Illness Encounter Date Complaint History Of Prese nt Illness No Information Functional Status Date Functional Assessmen t No Information Instructions Date Instruction Additional Infor mation Giving encouragement to exercise Related to Overweight Giving encouragement to exercise Related to Overweight Assessments Type Assessment Date No Information Patient Care Teams Name Effective Dates (start - stop) Status Members No Information
--- OUTSIDE RECORDS SUMMARY | 2025-03-03 17:53 | XMS_ITS | Clinical Summary ---
Author Organization [facility] Healthcare [facility] Care Team Providers Care Ordinary Seaman Name Role Phone Rigo Sotelo MD Primary Care Provider [phone] Allergies Active Allergy Reactions Criticality Noted Date [...] Type Department Care Team Description 12/23/2024 Telephone [facility] Family Medicine at [address] [place] [address] Rigo Sotelo MD Med Refill 12/15/2024 3:15 PM CDT Office Visit [facility] Family Medicine at [address] [place] [address] Rigo Sotelo MD Acute tonsillitis due to other specified organisms (Primary Dx) from Last 3 Months Immunizations [...] on file Legal Sex Female 4:15 PM [employer] Gender Identity Not on file Sexual Orientation [...] patient's age to complete this topic Insurance [facility] Address[facility] [address] [place] [address] [facility] [facility]S Care Teams Ordinary Seaman Relationship Specialty Start Date End Date Rigo Sotelo MD [address] [place] [id number] PCP - General Family Medicine 09/21/23
[2025-03-03 18:46] LABS: Beta HCG Quantitative 5.45 mIU/ML
== END 2025-03-03 17:50 | disposition home or self-care (01) ==
LOC: ANHLAB 17:50
PROVIDERS: PCP Family Medicine; Visit Provider Student in an Organized Health Care Education/Training Program
DX: O02.1 Missed abortion (principal); Z3A.00 Weeks of gestation of pregnancy not specified
CPT/HCPCS: 36415; 84702

== ENCOUNTER 2025-04-26 10:59 | Outpatient (CLI) | payer OTHER, SELFPAY ==
[2025-04-26 11:33] LABS: Hematocrit 44.2 % (37.0-47.0); Hemoglobin 14.8 g/dL (12.0-15.0); Immature Granulocyte Percent A 0.4 % (0-0.5); Lymphocytes Absolute Auto 2.28 K/mm3 (0.9-3.2); Mean Corpuscular HGB Conc 33.5 g/dl (32-36); Mean Corpuscular Hemoglobin 30.1 pg (26-34); Mean Corpuscular Volume 89.8 fl (80-100); Nucleated Red Blood Cells Absolute Auto 0.000 K/mm3 (0.0-0.012); Nucleated Red Blood Cells Perc 0.0 % (0.0-0.2); Platelet Count Result 259 k/mm3 (150-375); Red Blood Count 4.92 M/mm3 (4.2-5.4); White Blood Count 5.1 K/mm3 (4.5-10.0)
[2025-04-26 11:42] LABS: Alanine Aminotransferase 26 U/L (6-35); Albumin Level 4.4 g/dL (3.5-5.1); Alkaline Phosphatase 59 U/L (38-126); Anion Gap 6 mmol/L (4-12); Aspartate Amino Transferase 45 U/L (14-36); Bilirubin,Total 0.5 mg/dL (0.2-1.3); Blood Urea Nitrogen 11 mg/dL (7-17); Calcium 9.4 mg/dL (8.4-10.2); Carbon Dioxide 28 mmol/L (22-30); Chloride 103 mmol/L (98-107); Cholesterol 210 mg/dL (0-200); Estimated Glomerular Filt Rate > 60; Glucose 107 mg/dL (65-110); HDL Direct 50 mg/dL; Potassium 4.4 mmol/L (3.4-5.0); Sodium 137 mmol/L (137-145); Total Protein 7.8 g/dL (6.3-8.2); Triglycerides 75 mg/dL (<150)
[2025-04-26 12:14] LABS: Thyroid Stimulating Hormone 2.660 uIU/mL (0.465-4.680)
== END 2025-04-26 11:00 | disposition home or self-care (01) ==
PROVIDERS: PCP Family Medicine; Visit Provider Family Medicine
DX: Z00.00 Encounter for general adult medical examination without abnormal findings (principal)
CPT/HCPCS: 36415; 80053; 80061; 84443; 85025